=== PATIENT | male | born 1945 | race Caucasian/White ===

== ENCOUNTER 2020-01-13 11:18 | Inpatient (IN) | payer MEDICARE, BC ==
[2020-01-13] MEDS ORDERED: SODIUM CHLORIDE 0.9% 500 ML 500 ML IV STA (11:37)
[2020-01-13 11:56] LABS: Basophils # (A) 0.1 k/uL (0-0.2); Basophils % (A) 1 %; Eosinophils # (A) 0.2 k/uL (0-0.7); Eosinophils % (A) 3 %; HCT 42.1 % (39.0-53.0); HGB 13.9 gm/dL (13.0-17.5); Lymphocytes # (A) 1.5 k/uL (1.0-4.8); Lymphocytes % (A) 20 %; MCH 30.4 pg (25.0-35.0); MCHC 32.9 g/dL (31.0-37.0); MCV 92.4 fL (80.0-100.0); Mean Platelet Volume 8.1; Monocytes # (A) 0.4 k/uL (0-1.0); Monocytes % (A) 5 %; Neutrophils # (A) 5.2 k/uL (1.3-7.7); Neutrophils % (A) 69 %; Platelet Count 192 k/uL (150-450); RBC 4.56 m/uL (4.30-5.90); WBC 7.6 k/uL (3.8-10.6)
[2020-01-13 12:04] LABS: INR 0.9 (<1.2); Partial Thromboplastin Time 23.3 sec (22.0-30.0); Prothrombin Time 9.6 sec (9.0-12.0)
[2020-01-13 12:05] LABS: ALT 38 U/L (4-49); AST 30 U/L (17-59); African American GFR (CKD) >90 (>60 ml/min/1.73 sqM); Albumin 4.3 g/dL (3.5-5.0); Alkaline Phosphatase 75 U/L (38-126); Anion Gap 10 mmol/L; Blood Urea Nitrogen 19 mg/dL (9-20); Calcium 9.5 mg/dL (8.4-10.2); Carbon Dioxide 24 mmol/L (22-30); Chloride 101 mmol/L (98-107); Glucose 137 mg/dL (74-99); Non-African American GFR(CKD) 90 (>60 ml/min/1.73 sqM); Potassium 3.8 mmol/L (3.5-5.1); Sodium 135 mmol/L (137-145); Total Bilirubin 0.4 mg/dL (0.2-1.3); Total Protein 6.6 g/dL (6.3-8.2)
--- NOTE | 2020-01-13 12:06 | CT ---
EXAMINATION TYPE: CT brain wo con for TPA DATE OF EXAM: 01/13/2020 COMPARISON: None HISTORY: Right sided numbness, Left sided facial droop CT DLP: 1132.8 mGycm Automated exposure control for dose reduction was used. Head CT performed using departmental protocol . FINDINGS: There is no hemorrhage or hydrocephalus. Calvarium is intact. Paranasal sinuses and mastoid air cells as visualized are normal. Density is normal. Cerebral vascular calcifications are present. IMPRESSION: NO ACUTE BRAIN ABNORMALITY.
[2020-01-13 12:17] LABS: Creatine Kinase 121 U/L (55-170)
--- NOTE | 2020-01-13 12:21 | ED ---
General Adult HPI - General Chief complaint: Neuro Symptoms/Deficit Stated complaint: POSS stroke Time Seen by Provider: 01/13/20 11:20 Source: patient, RN notes reviewed, old records reviewed Mode of arrival: wheelchair - History of Present Illness Initial comments: This is a 74-year-old male presents emergency department stating that over the last week he's had blurred vision out of both eyes but when he shuts one eye his vision is normal he states his been intermittent throughout the week. Patient states today while he was driving his vision became very bad today pulled his car over and he began having a severe headache. Patient states the vision eventually came back to normal he had something to eat and then when you back into his car his vision started becoming blurred again. Patient states he also had numbness in his right arm which occurred twice during this timeframe. Patient states all symptoms have resolved except for the headache at this time. Patient appears to have some facial droop that the patient is unaware but the states the left side of his face is drooping. He did not notice his prior to coming to the emergency department. - Related Data Home Medications Medication Instructions Recorded Confirmed Calcium Carbonate [Calcium] 1,200 mg PO DAILY 01/13/20 01/13/20 Glucosam/Jimy-Msm1/C/Ezequiel/Bosw 2 tab PO DAILY 01/13/20 01/13/20 [Glucosamine-Chondroitin Tablet] Hydrochlorothiazide 12.5 mg PO HS 01/13/20 01/13/20 Levothyroxine Sodium [Synthroid] 50 mcg PO DAILY 01/13/20 01/13/20 Losartan Potassium 50 mg PO HS 01/13/20 01/13/20 Multivitamins, Thera [Multivitamin 1 tab PO DAILY 01/13/20 01/13/20 (formulary)] [place]-3 Fatty Acids [[place]-3] 1,000 mg PO DAILY 01/13/20 01/13/20 Allergies Allergy/AdvReac Type Severity Reaction Status Date / Time No Known Allergies Allergy Verified 01/13/20 12:39 Review of Systems ROS Statement: Those systems with pertinent positive or pertinent negative responses have been documented in the HPI. ROS Other: All systems not noted in ROS Statement are negative. Past Medical History Past Medical History: Hypertension, Thyroid Disorder Additional Past Medical History / Comment(s): hard of hearing Past Surgical History: Back Surgery Additional Past Surgical History / Comment(s): thyroid Past Psychological History: No Psychological Hx Reported Smoking Status: Never smoker Past Alcohol Use History: Occasional Past Drug Use History: None Reported General Exam - General Exam Comments Initial Comments: GENERAL: Patient is well-developed and well-nourished. Patient is nontoxic and well- hydrated and is in mild distress. ENT: Neck is soft and supple. No significant lymphadenopathy is noted. Oropharynx is clear. Moist mucous membranes. Neck has full range of motion without eliciting any pain. EYES: The sclera were anicteric and conjunctiva were pink and moist. Extraocular movements were intact and pupils were equal round and reactive to light. Eyelids were unremarkable. PULMONARY: Unlabored respirations. Good breath sounds bilaterally. No audible rales rhonchi or wheezing was noted. CARDIOVASCULAR: There is a regular rate and rhythm without any murmurs gallops or rubs. ABDOMEN: Soft and nontender with normal bowel sounds. No palpable organomegaly was noted. There is no palpable pulsatile mass. SKIN: Skin is clear with no lesions or rashes and otherwise unremarkable. NEUROLOGIC: Patient is alert and oriented x3. Patient has left-sided facial droop. Patient is good strength of all 4 extremities. Patient has normal sensation of all 4 extremities. MUSCULOSKELETAL: Normal extremities with adequate strength and full range of motion. No lower extremity swelling or edema. No calf tenderness. LYMPHATICS: No significant lymphadenopathy is noted PSYCHIATRIC: Normal psychiatric evaluation. Course Vital Signs 01/13/20 01/13/20 01/13/20 11:21 11:31 11:45 Temperature 98.1 F Pulse Rate 56 L Respiratory 18 18 Rate Blood Pressure 159/83 179/85 O2 Sat by Pulse 100 99 99 Oximetry 01/13/20 01/13/20 01/13/20 12:00 12:15 12:18 Temperature Pulse Rate 57 L 58 L Respiratory 18 16 16 Rate Blood Pressure 159/69 148/67 127/63 O2 Sat by Pulse 99 98 98 Oximetry 01/13/20 12:30 Temperature Pulse Rate 55 L Respiratory 19 Rate Blood Pressure 127/63 O2 Sat by Pulse 100 Oximetry Medical Decision Making - Medical Decision Making CT of the brain shows no acute abnormality. CTA shows a 90% atherosclerotic stenosis in the left carotid artery. Patient is a 60% atherosclerotic stenosis of the right carotid artery. I spoke with Dr. Luna because this was called code stroke. He agreed that there was no intervention necessary at this time and he wanted the patient admitted with consult to neurology and vascular I spoke with Dr. Ferraro he agreed to admit the patient admitted the patient I wrote admitting orders I gave the patient aspirin in the ER and continued aspirin on the floor. - Lab Data Result diagrams: 01/13/20 11:40 01/13/20 11:40 Lab Results 01/13/20 01/13/20 01/13/20 Range/Units 11:40 11:40 11:40 WBC 7.6 (3.8-10.6) k/uL RBC 4.56 (4.30-5.90) m/uL Hgb 13.9 (13.0-17.5) gm/dL Hct 42.1 (39.0-53.0) % MCV 92.4 (80.0-100.0) fL MCH 30.4 (25.0-35.0) pg MCHC 32.9 (31.0-37.0) g/dL RDW 13.0 (11.5-15.5) % Plt Count 192 (150-450) k/uL Neutrophils % 69 % Lymphocytes % 20 % Monocytes % 5 % Eosinophils % 3 % Basophils % 1 % Neutrophils # 5.2 (1.3-7.7) k/uL Lymphocytes # 1.5 (1.0-4.8) k/uL Monocytes # 0.4 (0-1.0) k/uL Eosinophils # 0.2 (0-0.7) k/uL Basophils # 0.1 (0-0.2) k/uL PT 9.6 (9.0-12.0) sec INR 0.9 (<1.2) APTT 23.3 (22.0-30.0) sec Sodium 135 L (137-145) mmol/L Potassium 3.8 (3.5-5.1) mmol/L Chloride 101 (98-107) mmol/L Carbon Dioxide 24 (22-30) mmol/L Anion Gap 10 mmol/L BUN 19 (9-20) mg/dL Creatinine 0.80 (0.66-1.25) mg/dL Est GFR (CKD-EPI)AfAm >90 (>60 ml/min/1.73 sqM) Est GFR (CKD-EPI)NonAf 90 (>60 ml/min/1.73 sqM) Glucose 137 H (74-99) mg/dL Calcium 9.5 (8.4-10.2) mg/dL Total Bilirubin 0.4 (0.2-1.3) mg/dL AST 30 (17-59) U/L ALT 38 (4-49) U/L Alkaline Phosphatase 75 (38-126) U/L Total Creatine Kinase (55-170) U/L CK-MB (CK-2) (0.0-2.4) ng/mL CK-MB (CK-2) Rel Index Troponin I (0.000-0.034) ng/mL Total Protein 6.6 (6.3-8.2) g/dL Albumin 4.3 (3.5-5.0) g/dL 01/13/20 Range/Units 11:40 WBC (3.8-10.6) k/uL RBC (4.30-5.90) m/uL Hgb (13.0-17.5) gm/dL Hct (39.0-53.0) % MCV (80.0-100.0) fL MCH (25.0-35.0) pg MCHC (31.0-37.0) g/dL RDW (11.5-15.5) % Plt Count (150-450) k/uL Neutrophils % % Lymphocytes % % Monocytes % % Eosinophils % % Basophils % % Neutrophils # (1.3-7.7) k/uL Lymphocytes # (1.0-4.8) k/uL Monocytes # (0-1.0) k/uL Eosinophils # (0-0.7) k/uL Basophils # (0-0.2) k/uL PT (9.0-12.0) sec INR (<1.2) APTT (22.0-30.0) sec Sodium (137-145) mmol/L Potassium (3.5-5.1) mmol/L Chloride (98-107) mmol/L Carbon Dioxide (22-30) mmol/L Anion Gap mmol/L BUN (9-20) mg/dL Creatinine (0.66-1.25) mg/dL Est GFR (CKD-EPI)AfAm (>60 ml/min/1.73 sqM) Est GFR (CKD-EPI)NonAf (>60 ml/min/1.73 sqM) Glucose (74-99) mg/dL Calcium (8.4-10.2) mg/dL Total Bilirubin (0.2-1.3) mg/dL AST (17-59) U/L ALT (4-49) U/L Alkaline Phosphatase (38-126) U/L Total Creatine Kinase 121 (55-170) U/L CK-MB (CK-2) 2.1 (0.0-2.4) ng/mL CK-MB (CK-2) Rel Index 1.7 Troponin I <0.012 (0.000-0.034) ng/mL Total Protein (6.3-8.2) g/dL Albumin (3.5-5.0) g/dL Critical Care Time Critical Care Time: Yes Total Critical Care Time: 35 Disposition Clinical Impression: Cerebrovascular accident (CVA), Carotid artery stenosis Disposition: ADMITTED IP TO THIS [facility] Is patient prescribed a controlled substance at d/c from ED?: No Referrals: None,Stated [REFERRING] - 1-2 days Time of Disposition: 13:52
[2020-01-13 12:30] LABS: Creatine Kinase MB 2.1 ng/mL (0.0-2.4); Troponin I <0.012 ng/mL (0.000-0.034)
--- NOTE | 2020-01-13 12:47 | CT ---
EXAMINATION TYPE: CT angio head neck DATE OF EXAM: 01/13/2020 COMPARISON: Same day HISTORY: 74-year-old male with right side numbness, LT side facial droop stroke suspected TECHNIQUE: Contiguous axial scanning of the head and neck performed with IV Contrast, patient injecte d with 65 mL of Isovue 370. Coronal/sagittal MIP reconstructions performed. 3-D reconstructions gener ated on a dedicated independent workstation. CT DLP: 570.2 mGycm Automated exposure control for dose reduction was used. FINDINGS: NECK: Conventional arch vessel branching anatomy. Moderate atherosclerotic calcifications at the origin of the left vertebral artery. The vertebral art eries are otherwise codominant and patent throughout their course. Right common carotid artery is patent. Moderate to severe atherosclerotic change at the right carotid bifurcation with moderate, approximate ly 60% stenosis in the carotid bulb. Remainder of the right ICA appears patent. Left common carotid artery is patent. There is crescentic plaque within the mid common carotid artery causing mild, 25% narrowing. Atherosclerotic calcifications and severe plaque within the left carotid bulb causing a severe, 90% s tenosis. Minimal patent lumen measuring approximately 1.4 mm remains. The left carotid bifurcation is located approximately 1.7 cm below the angle of the mandible. Remainder of the left internal carotid arteries patent. Small right lobe of the thyroid gland. Possible underlying moderate spinal canal stenoses within the cervical spine. HEAD: Vertebral and basilar arteries are patent. Hypoplastic P1 segments with persistent origin of the bilateral posterior cerebral arteries. Moderate atherosclerotic calcifications throughout the carotid siphons with focal moderate, approxima tely 60% stenosis along the supraclinoid ICAs, right greater than left, refer to thin axial images 10 5 and 117. Additional moderate focal atherosclerotic narrowing distal left ICA prior to the carotid terminus, ax ial image 118. Hypoplastic A1 segment left FER. Remainder of the anterior circulation is patent. No aneurysmal change is identified. IMPRESSION: NECK: 1. SEVERE, 90% ATHEROSCLEROTIC STENOSIS LEFT CAROTID BULB. 2. Moderate, approximately 60% atherosclerotic stenosis right carotid bulb. 3. Possible moderate atherosclerotic narrowing at the origin of the left vertebral artery. HEAD: 1. Mild to moderate atherosclerotic narrowing throughout the bilateral carotid siphons. 2. Additional focal moderate stenosis distal left ICA prior to the carotid terminus. 3. Hypoplastic A1 segment left FER. 4. Hypoplastic P1 segments with persistent origins of the bilateral asphalt blender. 5. No large vessel intracranial arterial occlusion or aneurysmal change is seen.
--- NOTE | 2020-01-13 13:36 | XR ---
EXAMINATION TYPE: XR chest 2V DATE OF EXAM: 01/13/2020 COMPARISON: NONE HISTORY: Altered mental status TECHNIQUE: Frontal and lateral views of the chest are obtained. FINDINGS: There is no focal air space opacity, pleural effusion, or pneumothorax seen. The cardiac silhouette size is within normal limits. The osseous structures are intact, compression deformities present at the lower thoracic spine, there is a sclerotic appearance. Biapical pleural thickening is noted. Aorta is dense. IMPRESSION: No acute cardiopulmonary process. Correlate for history of vertebroplasty at what may be T12, consider additional imaging as indicated
[2020-01-13] MEDS ORDERED: ASPIRIN 325 MG TAB PO STA (13:55)
[2020-01-13] MEDS ORDERED: ACETAMINOPHEN TAB 500 MG TAB PO STA (14:38)
--- NOTE | 2020-01-13 20:00 | P.CNNES ---
History of Present Illness Consult date: 01/13/20 Requesting physician: Dieudonne Hodgson Reason for Consult: CVA History of Present Illness: Patient is a 74-year-old male came to the hospital for possible recurrent TIAs. Patient states that he has bought a motor home and was planning to pick it up today from [place]. He was half a to [place], when he suddenly developed acute visual disturbance in which everything was scrambled up with both eyes. When he would close one eye, everything will go away and vice versa. He also noticed numbness of the right hand, with weakness and decreased dexterity. He pulled over and 8 a sandwich. However the symptoms came back in the right hand. He got concerned and came to the ER, and arrived at 11:18 AM. His blood pressure on arrival was 159/83, pulse rate 56, temperature 98.1. Patient underwent CT head showed no acute brain abnormality. CTA of the neck showed severe, 90% atherosclerotic stenosis left carotid bulb. Moderate approximately 60% atherosclerotic stenosis right carotid bulb. Possible moderate atherosclerotic narrowing at the origin of left vertebral artery. CTA of the head showed [id number] atherosclerotic narrowing throughout the bilateral carotid siphons. Additional focal moderate stenosis distal left ICA prior to carotid terminus. Hypoplastic A1 segment left FER. Hypoplastic P1 segment with persistent origins of the bilateral railway track worker. No large vessel intracranial arterial occlusion or aneurysmal changes is seen. Chest x-ray showed no acute cardiopulmonary process. Correlate for history of vertebroplasty at what maybe T12, consider additional imaging if indicated. Patient had normal CBC, PT/PTT, sodium 135 potassium 3.8, normal renal functions. Normal liver functions. Troponin negative. Patient also tells me that for past 12 weeks, he has been having dizzy spells, w hich he feels like disorientation, not vertigo. It would last for about 30 seconds. He spoke to his physician, who felt it was from side effect of medication. His dose of losartan was decreased from 100 down to 50 mg a week ago and his symptoms did improve. Patient in the last 1 week has been having this visual disturbance which would last only for a few seconds occurring from once to 2 or 3 times a day lasting for a few seconds. It feels like everything is scrambled up in his vision, goes away with closing one or the other eye. He states it could be double. The symptoms today was the most severe. Patient has history of hypertension for 10 years, which has got worse with time. Denies diabetes. He never used any tobacco. He states that he has been very athletic all his life. He does not take any antiplatelet medication, like aspirin for years. Patient also states that he had tripped on [employer] wire in September or October, while he was looking for wild mushrooms, and he fell on the right side. He blacked out for a short while. He melissa his head and neck. Patient also fell off a ladder 2 years ago, fracturing T11 vertebra. He also was diagnosed with prostate cancer, completed radiation and chemotherapy in March 2019. Review of Systems As mentioned above in detail. All other review of systems unremarkable. Patient denies any chest pain shortness of breath wheezing or cough. Denies abdominal pain nausea vomiting diarrhea. Complains of some back pain. Past Medical History Past Medical History: Cancer, Hypertension, Prostate Disorder, Thyroid Disorder Additional Past Medical History / Comment(s): hard of hearing, prostate cancer History of Any Multi-Drug Resistant Organisms: None Reported Past Surgical History: Back Surgery Additional Past Surgical History / Comment(s): thyroid Past Psychological History: No Psychological Hx Reported Smoking Status: Never smoker Past Alcohol Use History: Occasional Past Drug Use History: None Reported - Past Family History Father Family Medical History: Myocardial Infarction ([place]) Additional Family Medical History / Comment(s): of [place] Mother Family Medical History: CVA/TIA Additional Family Medical History / Comment(s): of stroke Sister(s) Family Medical History: Diabetes Mellitus Brother(s) Family Medical History: CVA/TIA Additional Family Medical History / Comment(s): of brain bleed stroke Medications and Allergies Home Medications Medication Instructions Recorded Confirmed Type Calcium Carbonate [Calcium] 1,200 mg PO DAILY 01/13/20 01/13/20 History Glucosam/Jimy-Msm1/C/Ezequiel/Bosw 2 tab PO DAILY 01/13/20 01/13/20 History [Glucosamine-Chondroitin Tablet] Hydrochlorothiazide 12.5 mg PO HS 01/13/20 01/13/20 History Levothyroxine Sodium [Synthroid] 50 mcg PO DAILY 01/13/20 01/13/20 History Losartan Potassium 50 mg PO HS 01/13/20 01/13/20 History Multivitamins, Thera [Multivitamin 1 tab PO DAILY 01/13/20 01/13/20 History (formulary)] [place]-3 Fatty Acids [[place]-3] 1,000 mg PO DAILY 01/13/20 01/13/20 History Allergies Allergy/AdvReac Type Severity Reaction Status Date / Time No Known Allergies Allergy Verified 01/13/20 12:39 Physical Examination - Vital Signs Vital Signs: Vital Signs Temp Pulse Pulse Resp BP BP Pulse Ox 01/13/20 14:22 98.5 F 54 L 19 144/70 98 01/13/20 14:00 53 L 20 153/71 98 01/13/20 13:45 56 L 19 143/66 99 01/13/20 13:15 137/67 01/13/20 13:00 55 L 20 136/65 97 01/13/20 12:45 55 L 16 131/66 01/13/20 12:30 55 L 19 127/63 100 01/13/20 12:18 58 L 16 127/63 98 01/13/20 12:15 57 L 16 148/67 98 01/13/20 12:00 18 159/69 99 01/13/20 11:45 18 179/85 99 01/13/20 11:31 99 01/13/20 11:21 98.1 F 56 L 18 159/83 100 Intake and Output 01/13/20 01/13/20 01/13/20 06:59 14:59 22:59 Intake Total 500 Balance 500 Intake: Intake, IV Titration 500 Amount Sodium Chloride 0.9% 500 500 ml 500 ml @ 999 mls/hr IV .Q31M STA Rx#:[id number] Other: Weight 95.708 kg On examination patient is an elderly male, in no acute distress. Patient is alert awake oriented to time place and person. Speech and language functions are normal. Attention, concentration and fund of knowledge is adequate. On cranial nerve examination pupils are round and reacting to light. Visual [place] are full on confrontation. Extraocular muscles are intact with no nystagmus. No Ching syndrome. Face is symmetric, tongue protrudes the midline. Palatal elevation and sensation normal. Hearing is slightly decreased, shoulder shrug normal. On muscle strength testing there is no pronator drift and the strength is normal in arms and legs distally and proximally. Reflexes are somewhat diminished and plantars are equivocal. Sensory to touch is equal with no neglect. No ataxia for [id number] testing. Tone and bulk of muscles normal. Gait deferred. Patient has bilateral carotid bruit. S1 and S2 audible. Peripheral pulses present. No peripheral edema. Chest is clear, abdomen soft nontender. Results - Laboratory Findings CBC and BMP: 01/13/20 11:40 01/13/20 11:40 Abnormal Lab Findings: Abnormal Labs 01/13/20 11:40 Sodium 135 L Glucose 137 H Assessment and Plan Assessment: * Recurrent TIA manifesting with intermittent dizziness, visual disturbance, and more recent onset of transient right arm weakness. Current INH stroke scale is 0. CTA of neck showed bilateral ICA stenosis, 90% on the left, 60% on the right, with possible some atherosclerotic narrowing at the origin of left vertebral artery. * Bilateral ICA stenosis, severe on the left. * Hypertension Plan: * Patient has been started on aspirin 325 mg daily, which will be continued. * Await MRI of the brain, 2-D echo to rule out any embolic source. * Agree with checking fasting lipid panel, hemoglobin A1c. * Await vascular surgical consultation. * Continue close neuro checks. * Neurology will follow.
[2020-01-13] MEDS: LOSARTAN 50 MG TAB PO SCH (20:17)
--- NOTE | 2020-01-14 00:39 | HP ---
HISTORY AND PHYSICAL A 74-year-old white male came to the hospital with visual changes 2 weeks ago and also today, unable to see because of blurred vision, unable to drive. He came here with right-sided weakness and numbness in his right hand along with the blurred vision, which has never happened to him before. His pulse rate is 59, blood pressure 159/83, temperature is afebrile. CT was negative. CT of the neck shows 90% blockage of the left carotid bulb and a 60% stenosis on the right side of the carotid artery bulb. He also has moderate stenosis of the distal left ICA. He has a vertebroplasty at T12. He states he has been having some dizziness also in the last 12 weeks, not vertigo. His losartan was cut down from 100 to 50, a week ago, did not improve his symptoms. The patient was admitted. MRI has been ordered. Neurology consult is pending. He was diagnosed with prostate cancer complete radiation and chemotherapy in 2019. REVIEW OF SYSTEMS: Fourteen-point review of systems otherwise negative. PAST MEDICAL HISTORY: Prostate cancer, hypertension, hypothyroidism, hard of hearing, back surgery. Never smoked. Occasional alcohol. No drugs. FAMILY HISTORY: Father myocardial infarction. Mother CVA, TIA. Sister diabetes mellitus. Brother of brain bleed and stroke. HOME MEDICINES: 1. Calcium 1200 mg daily. 2. Hydrochlorothiazide 12.5 mg one daily. 3. Synthroid 50 mcg one daily. 4. Losartan 50 mg daily. 5. Multivitamin daily. 6. [place]-3 fatty acids daily. ALLERGIES: No known drug allergies. PHYSICAL EXAMINATION: VITAL SIGNS: Temperature 98.5, pulse 50s to 60s, respiratory rate 18 to 20, blood pressure is 120s to 150s over 60s to 70s, O2 of 98% to 100%. Range of motion full x4. CARDIOVASCULAR: S1, S2. LUNGS: Clear. GI: Soft. HEMATOLOGY: Negative Homans. ASSESSMENT: 1. Recurrent transient ischemic attack. 2. Intermittent dizziness. 3. Right carotid stenosis. 4. Bilateral ICA stenosis, severe on the left. 5. Hypertension. Aspirin. MRI of the brain. 2D echo. Vascular surgical consultation. Please see further orders. MMODL / IJN: [id number] /
[2020-01-14 02:08] LABS: Cholesterol 183 mg/dL (<200); HDL Cholesterol 40 mg/dL (40-60); LDL Cholesterol,Calculated 93 mg/dL (0-99); Triglycerides 252 mg/dL (<150)
[2020-01-14 04:11] LABS: Hemoglobin A1C 6.2 % (4.0-6.0)
[2020-01-14] MEDS: LEVOTHYROXINE 50 MCG TAB PO SCH (06:20)
[2020-01-14 08:00] LABS: Glucose,Whole Blood 142 mg/dL (75-99)
[2020-01-14] MEDS: ASPIRIN 325 MG TAB PO SCH (08:15)
[2020-01-14] MEDS: CLOPIDOGREL 75 MG TAB PO SCH (09:27)
--- NOTE | 2020-01-14 10:00 | ECHOF ---
Referral Reason:embolic cva MEASUREMENTS -------- HEIGHT: 180.3 cm WEIGHT: 95.7 kg BP: 136/65 IVSd: 1.5 cm (0.6 - 1.1) LVIDd: 3.9 cm (3.9 - 5.3) LVPWd: 1.8 cm (0.6 - 1.1) IVSs: 2.0 cm LVIDs: 2.1 cm LVPWs: 1.8 cm LAESV Index (A-L): 13.55 ml/m Ao Diam: 2.9 cm (2.0 - 3.7) AV Cusp: 1.8 cm (1.5 - 2.6) LA Diam: 2.7 cm (2.7 - 3.8) MV EXCURSION: 16.659 mm (> 18.000) MV EF SLOPE: 93 mm/s (70 - 150) EPSS: 0.5 cm MV E Errol: 1.02 m/s MV DecT: 248 ms MV A Errol: 0.81 m/s MV E/A Ratio: 1.26 RAP: 5.00 mmHg RVSP: 21.24 mmHg FINDINGS -------- Sinus rhythm. This was a technically good study. The left ventricular size is normal. There is moderate concentric left ventricular hypertrophy. O verall left ventricular systolic function is normal with, an EF between 55 - 60 %. The right ventricle is normal in size. The left atrial size is normal. Normal LA size by volume 22+/-6 ml/m2. The right atrial size is normal. The aortic valve is trileaflet and appears structurally normal. The mitral valve leaflets are mildly thickened. There is trace mitral regurgitation. Trace tricuspid regurgitation present. Right ventricular systolic pressure is normal at < 35 mmHg. There is no pulmonic regurgitation present. The aortic root size is normal. IVC Not well visulized. There is no pericardial effusion. CONCLUSIONS -------- 1. There is moderate concentric left ventricular hypertrophy. 2. Overall left ventricular systolic function is normal with, an EF between 55 - 60 %. 3. The mitral valve leaflets are mildly thickened. 4. There is trace mitral regurgitation. 5. Trace tricuspid regurgitation present. TRAINMAN: Mitzi Daly RDCS
--- NOTE | 2020-01-14 12:33 | P.GSCN ---
History of Present Illness Consult date: 01/14/20 Reason for Consult: Severe left internal Carotid stenosis, TIA History of present illness: This is a 74-year-old male patient who came to the hospital yesterday with complaints of bilateral vision changes, followed by right upper extremity numbness and tingling in his hand as well as loss of dexterity. He states he had blurred vision which he described as draping was scrambled, many with close 1 eye everything would go away. He states that his visual changes started about a week ago and are intermittent. He was driving on his way to [place] when he knew onset of symptoms began, he was able to crop puller to the side of the road and have a sandwich Bonnie nagel to drive. Once his hand started becoming numb and tingling he decided to come to the emergency department. He was noted to have left facial drooping as well in the emergency department. His blood pressure on arrival was 159/83, heart rate 53, temperature 98.1. The patient is a lifetime nonsmoker, has a history of hypertension and a history of prostate cancer with radiation therapy in 2019. The patient states currently all symptoms have subsided. CT of the head showed no acute brain abnormality. CT angiogram of the neck shows 90% stenosis in the left carotid bulb, 60% stenosis in the right carotid bulb with possible moderate arthrosclerotic narrowing at the origin of left vertebral artery. ET angiogram of the head shows mild to moderate arthrosclerotic narrowing throughout the bilateral carotid siphons. Additional focal moderate stenosis distal left ICA pressure to the carotid terminus. 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 No large vessel intracranial arterial occlusive or aneurysmal changes seen. Echocardiogram shows there is moderate concentric left ventricular hypertrophy, overall ventricular systolic function is normal, an EF between 55-60%. The mitral valve leaflets are mildly thickened. There is a trace of mitral regurgitation. Trace tricuspid regurg itation present. Right ventricular systolic pressure is normal. There is no pulmonic regurgitation present. Lipid panel was obtained obtained, triglycerides 252, total cholesterol 183, LDL 93, HDL 40. The patient has no current focal deficits, he denies any shortness breath or chest pain. Denies any abdominal pain, nausea or vomiting. Review of Systems A 14 point review of systems was completed all pertinent positives and negatives as stated in the HPI. Past Medical History Past Medical History: Cancer, Hypertension, Prostate Disorder, Thyroid Disorder Additional Past Medical History / Comment(s): hard of hearing, prostate cancer History of Any Multi-Drug Resistant Organisms: None Reported Past Surgical History: Back Surgery Additional Past Surgical History / Comment(s): thyroid Past Psychological History: No Psychological Hx Reported Smoking Status: Never smoker Past Alcohol Use History: Occasional Past Drug Use History: None Reported - Past Family History Father Family Medical History: Myocardial Infarction (IA) Additional Family Medical History / Comment(s): of [place] Mother Family Medical History: CVA/TIA Additional Family Medical History / Comment(s): of stroke Sister(s) Family Medical History: Diabetes Mellitus Brother(s) Family Medical History: CVA/TIA Additional Family Medical History / Comment(s): of brain bleed stroke Medications and Allergies Home Medications Medication Instructions Recorded Confirmed Type Calcium Carbonate [Calcium] 1,200 mg PO DAILY 01/13/20 01/13/20 History Glucosam/Jimy-Msm1/C/Ezequiel/Bosw 2 tab PO DAILY 01/13/20 01/13/20 History [Glucosamine-Chondroitin Tablet] Hydrochlorothiazide 12.5 mg PO HS 01/13/20 01/13/20 History Levothyroxine Sodium [Synthroid] 50 mcg PO DAILY 01/13/20 01/13/20 History Losartan Potassium 50 mg PO HS 01/13/20 01/13/20 History Multivitamins, Thera [Multivitamin 1 tab PO DAILY 01/13/20 01/13/20 History (formulary)] [place]-3 Fatty Acids [[place]-3] 1,000 mg PO DAILY 01/13/20 01/13/20 History Allergies Allergy/AdvReac Type Severity Reaction Status Date / Time No Known Allergies Allergy Verified 01/13/20 12:39 Surgical - Exam Vital Signs Temp Pulse Resp BP Pulse Ox 98.1 F 56 L 18 159/83 100 01/13/20 11:21 01/13/20 11:21 01/13/20 11:21 01/13/20 11:21 01/13/20 11:21 General appearance: The patient is alert, oriented, in no acute distress. HET: Head is normocephalic and atraumatic. Pupils are equal and reactive. Oropharynx is clear without lesions. Neck: Supple without lymphadenopathy. Trachea midline. Right carotid with sli ght bruit, left carotid not audible. Heart: S1 S2. Regular rate and rhythm. Lungs: No crackles or wheezes are heard. Abdomen: Soft, nontender, nondistended with bowel sounds. Extremities: Normal skin color and turgor. No cyanosis, rash, ulceration, clubbing, or edema. Radial and pedal pulses are 2/4 bilaterally. Neurological: No focal deficits. Strength and sensation are grossly intact. Speech is fluent, patient is able to protrude tongue midline. No facial drooping noticed. Bilateral upper and lower strength normal. Results Echocardiogram reviewed and dictated in [facility] CT brain reviewed and dictated in the [facility] CT angiogram of head and neck reviewed and dictated in the HPI - Labs 01/13/20 11:40 01/13/20 11:40 Abnormal Lab Results - Last 24 Hours (Table) 01/13/20 01/13/20 01/13/20 Range/Units 11:40 11:40 11:40 Sodium 135 L (137-145) mmol/L Glucose 137 H (74-99) mg/dL POC Glucose (mg/dL) (75-99) mg/dL Hemoglobin A1c 6.2 H (4.0-6.0) % Triglycerides 252 H (<150) mg/dL 01/13/20 Range/Units 11:41 Sodium (137-145) mmol/L Glucose (74-99) mg/dL POC Glucose (mg/dL) 142 H (75-99) mg/dL Hemoglobin A1c (4.0-6.0) % Triglycerides (<150) mg/dL Diabetes panel 01/13/20 01/13/20 01/13/20 Range/Units 11:40 11:40 11:40 Sodium 135 L (137-145) mmol/L Potassium 3.8 (3.5-5.1) mmol/L Chloride 101 (98-107) mmol/L Carbon Dioxide 24 (22-30) mmol/L BUN 19 (9-20) mg/dL Creatinine 0.80 (0.66-1.25) mg/dL Glucose 137 H (74-99) mg/dL Hemoglobin A1c 6.2 H (4.0-6.0) % Calcium 9.5 (8.4-10.2) mg/dL AST 30 (17-59) U/L ALT 38 (4-49) U/L Alkaline Phosphatase 75 (38-126) U/L Total Protein 6.6 (6.3-8.2) g/dL Albumin 4.3 (3.5-5.0) g/dL Triglycerides 252 H (<150) mg/dL HDL Cholesterol 40 (40-60) mg/dL Thyroid panel 01/13/20 Range/Units 11:40 TSH 2.340 (0.465-4.680) mIU/L Calcium panel 01/13/20 Range/Units 11:40 Calcium 9.5 (8.4-10.2) mg/dL Albumin 4.3 (3.5-5.0) g/dL Pituitary panel 01/13/20 01/13/20 Range/Units 11:40 11:40 Sodium 135 L (137-145) mmol/L Potassium 3.8 (3.5-5.1) mmol/L Chloride 101 (98-107) mmol/L Carbon Dioxide 24 (22-30) mmol/L BUN 19 (9-20) mg/dL Creatinine 0.80 (0.66-1.25) mg/dL Glucose 137 H (74-99) mg/dL Calcium 9.5 (8.4-10.2) mg/dL TSH 2.340 (0.465-4.680) mIU/L Adrenal panel 01/13/20 Range/Units 11:40 Sodium 135 L (137-145) mmol/L Potassium 3.8 (3.5-5.1) mmol/L Chloride 101 (98-107) mmol/L Carbon Dioxide 24 (22-30) mmol/L BUN 19 (9-20) mg/dL Creatinine 0.80 (0.66-1.25) mg/dL Glucose 137 H (74-99) mg/dL Calcium 9.5 (8.4-10.2) mg/dL Total Bilirubin 0.4 (0.2-1.3) mg/dL AST 30 (17-59) U/L ALT 38 (4-49) U/L Alkaline Phosphatase 75 (38-126) U/L Total Protein 6.6 (6.3-8.2) g/dL Albumin 4.3 (3.5-5.0) g/dL Assessment and Plan Assessment: 1. Severe left ICA stenosis, approximately 90%. Right ICA stenosis approximately 60% 2. TIA 3. Visual disturbance 4. Right upper extremity numbness and weakness 5. Hypertension 6. History of prostate cancer, status post radiation therapy Plan: We'll start patient on low-dose aspirin, Plavix 75 mg daily, and atorvastatin 40 mg at at bedtime. Dr. Oconnor discussed with patient that he recommends vascular surgical intervention for his severe left carotid stenosis within the next 2 weeks to stabilize symptoms. Further vascular surgical recommendations to follow based on MRI of brain and recommendations per neurology. This consultation allowing us to take part in the plan of care your patient during his hospital stay. The above dictated assessment and findings were discussed with Dr. Oconnor. The impression and plan of care have been directed as dictated.
--- NOTE | 2020-01-14 13:28 | PN ---
PROGRESS NOTE 74-year-old white male who is symptomatology of a stroke with his blurry vision, right hand numbness all improved. He had an echo shows heart is pumping 55-60 percent, LVH, but no significant embolic causing a stroke. He has been weaned to be seen by vascular surgeon for left carotid stenosis 90%. If neurology and vascular surgeon clear him for discharge, he may be able to go home. Wait for the recommendations. Await for an MRI of the brain. Glucose level is 137. Hemoglobin A1c is 6.2, so he is prediabetic, which will be discussed with him as mentioned. Cardiac S1, S2. Lungs clear. GI soft. Await for recommendations from vascular surgeon for severe carotid stenosis on the left. IMPRESSION: 1. Transient ischemic attack. 2. Hypothyroidism. 3. Prediabetes. 4. Dyslipidemia. PROGNOSIS: Guarded. Please see further orders. MMODL / IJN: [id number] /
--- NOTE | 2020-01-14 14:27 | MR ---
EXAMINATION TYPE: MR brain wo/w con DATE OF EXAM: 01/14/2020 COMPARISON: CT 01/13/2020 HISTORY: 74-year-old male with right arm numbness, Lt side facial droop. Neuro deficits, stroke suspe cted TECHNIQUE: Multiplanar, multisequence images of the brain and brainstem were acquired before and aft er administration of 9.5 mL IV Gadavist. Diffusion weighted imaging is performed. FINDINGS: Images show no foci of restricted diffusion at the left parieto-occipital junction ranging in size fr om 3 mm to 1.3 cm. There is corresponding bright T2/FLAIR signal. No additional abnormal restricted diffusion is seen. Mild age-related cerebral cortical volume loss. Background of trace scattered T2 bright white matter change. Bilateral persistent origin of the posterior cerebral arteries better seen on prior CT angiogra phy. No enhancing intracranial lesions. Dural venous sinuses are patent. No midline shift, herniation, hydrocephalus, or extra-axial fluid collection. Midline structures demonstrate normal morphology. The craniocervical junction is normal. Leftward nasal septal deviation. Moderate mucosal thickening right maxillary sinus and mild within th e air cells and left maxillary sinus. Globes are intact. IMPRESSION: 1. Approximately 4 cortical and subcortical foci of acute infarct (greater than 6 hours in duration) ranging in size from 3 mm up to 1.3 cm involving the left parieto-occipital junction. No mass effect or midline shift. 2. Note that the patient's CT angiography of the head on 01/13/2020 demonstrated persistent orig in to the bilateral posterior cerebral arteries.. 3. Mild chronic paranasal sinus disease.
--- NOTE | 2020-01-14 16:04 | P.PN ---
Subjective Progress Note Date: 01/14/20 No further strokes or TIA. Telemetry monitoring showing sinus rhythm with sinus bradycardia. Objective - Vital Signs Vital signs: Vital Signs Temp 97.8 F 01/14/20 08:00 Pulse 53 L 01/14/20 12:00 Resp 19 01/14/20 12:00 BP 147/76 01/14/20 12:00 Pulse Ox 97 01/14/20 12:00 Intake & Output 01/13/20 01/14/20 01/14/20 18:59 06:59 18:59 Intake Total 736 660 240 Output Total 200 Balance 736 460 240 Weight 95.708 kg Intake: Intake, IV Titration 500 Amount Sodium Chloride 0.9% 500 500 ml 500 ml @ 999 mls/hr IV .Q31M STA Rx#:[id number] Oral 236 660 240 Output: Urine 200 Other: Voiding Method Toilet Toilet # Voids 3 - Exam Nonfocal. - Labs CBC & Chem 7: 01/13/20 11:40 01/13/20 11:40 Labs: Abnormal Lab Results - Last 24 Hours (Table) 01/13/20 01/13/20 01/13/20 Range/Units 11:40 11:40 11:41 POC Glucose (mg/dL) 142 H (75-99) mg/dL Hemoglobin A1c 6.2 H (4.0-6.0) % Triglycerides 252 H (<150) mg/dL Assessment and Plan Assessment: * Recurrent TIA manifesting with intermittent dizziness, visual disturbance, and more recent onset of transient right arm weakness. Current INH stroke scale is 0. CTA of neck showed bilateral ICA stenosis, 90% on the left, 60% on the right, with possible some atherosclerotic narrowing at the origin of left vertebral artery. MRI of the brain confirmed approximately 4 cortical and subcortical foci of acute infarct ranging in size from 3 mm to 1.3 cm involving the left parieto-occipital junction. No mass effect. * Bilateral ICA stenosis, severe on the left. * Hypertension Plan: * Patient now on dual antiplatelet medications with aspirin 325 mg and Plavix 75 mg. * MRI of the brain confirmed approximately 4 cortical and subcortical foci of acute infarct ranging in size from 3 mm to 1.3 cm involving the left parieto- occipital junction. No mass effect or midline shift. * 2-D echo showed moderate concentric LVH, EF is 55-60%. Mitral valve leaflet is mildly thickened. Trace MR. No obvious embolic source identified. * Fasting lipid panel showed cholesterol 183, LDL 93, HDL 40 and triglycerides 252. Continue Lipitor 40 mg. * Hemoglobin A1c 6.2. Patient states that he does have history of prediabetes for some time. * Vascular surgical input appreciated. Possible left CEA within 1-2 weeks * Continue close neuro checks.
[2020-01-14] MEDS ORDERED: ATORVASTATIN 40 MG TAB PO SCH (21:00)
[2020-01-14] MEDS: LOSARTAN 50 MG TAB PO SCH (21:02)
[2020-01-15] MEDS: LEVOTHYROXINE 50 MCG TAB PO SCH (06:13)
[2020-01-15] MEDS: ASPIRIN 325 MG TAB PO SCH (08:36)
[2020-01-15] MEDS: CLOPIDOGREL 75 MG TAB PO SCH (08:36)
[2020-01-15 09:45] VITALS: RESP 16
[2020-01-15 11:33] VITALS: BP 128/70; PULSE 57; TEMP 98.6
--- NOTE | 2020-01-15 12:36 | P.PN ---
Subjective Progress Note Date: 01/15/20 Patient seen and examined. No complaints. No issues with weakness or changes in vision overnight. No chest pains, shortness of breath nausea or vomiting. MRI is reviewed. Multiple foci of infarct measuring 3 mm to 1.3 cm in size Objective - Vital Signs Vital signs: Vital Signs Temp 98.6 F 01/15/20 11:31 Pulse 57 L 01/15/20 11:31 Resp 16 01/15/20 11:31 BP 128/70 01/15/20 11:31 Pulse Ox 99 01/15/20 11:31 Intake & Output 01/14/20 01/15/20 01/15/20 18:59 06:59 18:59 Intake Total 1240 236 Output Total 620 Balance 1240 -620 236 Intake: Oral 1240 236 Output: Urine 620 Other: Voiding Method Toilet # Voids 1 2 1 - Exam Gen. is a pleasant cooperative male in no acute distress. HEENT is normocephalic, atraumatic, extraocular motion intact. Heart is regular rate and rhythm at this time. Lungs are clear bilaterally. Abdomen soft, nontender and nondistended. No clubbing, cyanosis or edema of the extremities. Cranial ne rves II through XII grossly intact. Normal mood and affect. No neuro motor defects or deficits at this time - Labs CBC & Chem 7: 01/13/20 11:40 01/13/20 11:40 Assessment and Plan Assessment: #1 symptomatically high-grade left ICA stenosis #2 asymptomatic right ICA stenosis about 60% #3 CVA secondary to #1 #4 right arm weakness/numbness, resolved Plan: Attending recommendations continue to be repair within 2 weeks. Currently the patient has been started on aspirin and Plavix as well as statin medication to continuing. We will plan on performing his procedure sometime in the next 2 weeks, this point he can be discharged with surgical planning as an outpatient. All questions were answered. He is seemingly understanding and willing to proceed as such
--- NOTE | 2020-01-15 14:23 | P.PN ---
Subjective Progress Note Date: 01/15/20 No further strokes or TIA. Patient states he is able to walk without any issues. No focal symptoms. Objective - Vital Signs Vital signs: Vital Signs Temp 98.6 F 01/15/20 11:31 Pulse 57 L 01/15/20 11:31 Resp 16 01/15/20 11:31 BP 128/70 01/15/20 11:31 Pulse Ox 99 01/15/20 11:31 Intake & Output 01/14/20 01/15/20 01/15/20 18:59 06:59 18:59 Intake Total 1240 236 Output Total 620 Balance 1240 -620 236 Intake: Oral 1240 236 Output: Urine 620 Other: Voiding Method Toilet # Voids 1 2 1 - Exam Patient's mental status, speech and language functions are normal. No aphasia or dysarthria. Fully oriented. Cranial nerves pupils are round and reactive to light, visual [place] are full. Extraocular muscles are intact. Face has no d efinite asymmetry. Appears slightly asymmetric on the left, but patient's reviewed his face and states is at baseline. Tongue protrudes the midline. On muscle strength testing there is no pronator drift and the strength is normal in arms and legs. No ataxia for [id number] testing. Sensations are equal with no neglect. Gait is normal. Romberg negative. - Labs CBC & Chem 7: 01/13/20 11:40 01/13/20 11:40 Assessment and Plan Assessment: * Recurrent TIA manifesting with intermittent dizziness, visual disturbance, and more recent onset of transient right arm weakness. Current INH stroke scale is 0. CTA of neck showed bilateral ICA stenosis, 90% on the left, 60% on the right, with possible some atherosclerotic narrowing at the origin of left vertebral artery. MRI of the brain confirmed embolic infarction (approximately 4 cortical and subcortical foci of acute infarct ranging in size from 3 mm to 1.3 cm) involving the left parieto-occipital junction. No mass effect. * Bilateral ICA stenosis, severe on the left. * Hypertension Plan: * Patient now on dual antiplatelet medications with aspirin 325 mg and Plavix 75 mg. * MRI of the brain confirmed approximately 4 cortical and subcortical foci of acute infarct ranging in size from 3 mm to 1.3 cm involving the left parieto- occipital junction. No mass effect or midline shift. * 2-D echo showed moderate concentric LVH, EF is 55-60%. Mitral valve leaflet is mildly thickened. Trace MR. No obvious embolic source identified. * Fasting lipid panel showed cholesterol 183, LDL 93, HDL 40 and triglycerides 252. Continue Lipitor 40 mg. * Hemoglobin A1c 6.2. Patient states that he does have history of prediabetes for some time. * Vascular surgical input appreciated. Possible left CEA within 1-2 weeks * Patient being discharged, and will follow up with vascular surgery to schedule outpatient left CEA within 1-2 weeks.
--- NOTE | 2020-01-16 15:04 | P.DS ---
Providers Date of admission: 01/13/20 13:55 Expected date of discharge: 01/15/20 Attending physician: Girish Ferraro Consults: 01/13/20 13:57 Consult Physician Routine Consulting Provider: Paula Manzanares Consult Reason/Comments: CVa Do you want consulting provider notified?: Yes 01/13/20 13:58 Consult Physician Routine Consulting Provider: Jalil Oconnor Consult Reason/Comments: Left carotid artery stenosis Do you want consulting provider notified?: Yes Primary care physician: Physician Nonstaff Hospital Course: Final Diagnoses: Possible recurrent TIAs. Acute CVA.MRI of the brain confirmed embolic infarction (approximately 4 cortical and subcortical foci of acute infarct ranging in size from 3 mm to 1.3 cm) involving the left parieto-occipital junction. No mass effect. Bilateral ICA stenosis, severe on the left. Hypertension right arm weakness/numbness, resolved Hypothyroidism Dyslipidemia Hemoglobin A1c 6.2, prediabetes History of prostate cancer, status post radiation therapy Hospital course is a 74-year-old gentleman admitted with possible recurrent TIAs, intermittent dizziness, focal deficits, transient right arm weakness. Evaluated by neurology with neuro work completed. CTA of neck showed bilateral ICA stenosis, 90% on the left, 60% on the right, with possible some atherosclerotic narrowing at the origin of left vertebral artery. Bilateral ICA stenosis, severe on the left. Echo reported normal LV function, EF 55-60%, with no embolic source identified. Evaluated by vascular surgery. Maintained on aspirin ,Plavix, statin. Significant clinical improvement. Possible left CEA within 2 weeks. Cleared by both vascular surgery and neurology for discharge. Patient is being discharged home in a stable condition with guarded prognosis. The impression and plan of care has been dictated as directed. : I performed a history and examination of this patient, discussed the same with the dictator. I agree with the dictator's note ,documented as a scribe. Any additional findings or plans will be noted. Patient Condition at Discharge: Stable Plan - Discharge Summary Discharge Rx Participant: Yes New Discharge Prescriptions: New Aspirin EC [Ecotrin Low Dose] 81 mg PO DAILY #30 tablet. Atorvastatin [Lipitor] 40 mg PO HS #30 tab Clopidogrel [Plavix] 75 mg PO DAILY #30 tab Continue Multivitamins, Thera [Multivitamin (formulary)] 1 tab PO DAILY Glucosam/Jimy-Msm1/C/Ezequiel/Bosw [Glucosamine-Chondroitin Tablet] 2 tab PO DAILY [place]-3 Fatty Acids [[place]-3] 1,000 mg PO DAILY Losartan Potassium 50 mg PO HS Levothyroxine Sodium [Synthroid] 50 mcg PO DAILY Hydrochlorothiazide [hydroCHLOROthiazide] 12.5 mg PO HS Calcium Carbonate [Calcium] 1,200 mg PO DAILY Discharge Medication List Calcium Carbonate [Calcium] 1,200 mg PO DAILY 01/13/20 [History] Glucosam/Jimy-Msm1/C/Ezequiel/Bosw [Glucosamine-Chondroitin Tablet] 2 tab PO DAILY 01/13/20 [History] Hydrochlorothiazide [hydroCHLOROthiazide] 12.5 mg PO HS 01/13/20 [History] Levothyroxine Sodium [Synthroid] 50 mcg PO DAILY 01/13/20 [History] Losartan Potassium 50 mg PO HS 01/13/20 [History] Multivitamins, Thera [Multivitamin (formulary)] 1 tab PO DAILY 01/13/20 [History] [place]-3 Fatty Acids [[place]-3] 1,000 mg PO DAILY 01/13/20 [History] Aspirin EC [Ecotrin Low Dose] 81 mg PO DAILY #30 tablet.dr 01/15/20 [Rx] Atorvastatin [Lipitor] 40 mg PO HS #30 tab 01/15/20 [Rx] Clopidogrel [Plavix] 75 mg PO DAILY #30 tab 01/15/20 [Rx] Follow up Appointment(s)/Referral(s): Lily May MD [REFERRING] - 2 Weeks (Office will call with appt date and time.) Girish Ferraro MD [STAFF PHYSICIAN] - 3 Days (please call [phone] to make follow up appt. within 3 days.) Martha Park DO [STAFF PHYSICIAN] - 01/29/20 10:45 am (Appointment is at [address] [id number]) Discharge Disposition: HOME SELF-CARE
== END 2020-01-15 14:42 | disposition home or self-care (01) | DRG 65 ==
LOC: EDSEX → EC 11:18 → 3SCARD 13:55
PROVIDERS: ADMIT Family Medicine; ATTEND Family Medicine
DX: I63.232 Cerebral infarction due to unspecified occlusion or stenosis of left carotid arteries (principal); G81.91 Hemiplegia, unspecified affecting right dominant side; R29.810 Facial weakness; H53.8 Other visual disturbances; R29.701 NIHSS score 1; E03.9 Hypothyroidism, unspecified; E78.5 Hyperlipidemia, unspecified; H91.90 Unspecified hearing loss, unspecified ear; I10 Essential (primary) hypertension; I65.23 Occlusion and stenosis of bilateral carotid arteries; R73.03 Prediabetes; N42.9 Disorder of prostate, unspecified; Z11.59 Encounter for screening for other viral diseases; Z79.890 Hormone replacement therapy; Z79.899 Other long term (current) drug therapy; Z92.3 Personal history of irradiation; Z92.21 Personal history of antineoplastic chemotherapy; Z85.46 Personal history of malignant neoplasm of prostate; Z82.3 Family history of stroke; Z82.49 Family history of ischemic heart disease and other diseases of the circulatory system; Z83.3 Family history of diabetes mellitus; Z80.42 Family history of malignant neoplasm of prostate; Z83.52 Family history of ear disorders; Z83.49 Family history of other endocrine, nutritional and metabolic diseases
CPT/HCPCS: 36415; 70450; 70496; 70498; 70553; 71046; 80053; 80061; 82550; 82553; 83036; 84443; 84484; 85025; 85610; 85730; 93306; 99291

== ENCOUNTER 2020-01-28 07:28 | Inpatient (IN) | payer MEDICARE, BC ==
[2020-01-22 15:56] VITALS: BMI 26.0
[~2020-01-28 07:28] MED LIST: DEXAMETHASONE SOD PHOSPHATE 10 MG/ML 1 ML VIAL IV ONE; HYDROmorphone 0.5 MG/0.5 ML SYRINGE IVP PRN; LACTATED RINGERS 1,000 ML IV SCH; MIDAZOLAM 2 MG/2 ML VIAL IV PRN; ONDANSETRON 4 MG/2 ML VIAL IVP ONE
[2020-01-28] MEDS ORDERED: ONDANSETRON 4 MG/2 ML VIAL ONE (07:59)
[2020-01-28] MEDS ORDERED: MIDAZOLAM 2 MG/2 ML VIAL IVP ONE (08:25)
[2020-01-28] MEDS ORDERED: fentaNYL (PF) 50 MCG/ML 2 ML AMP IVP ONE (08:25)
--- NOTE | 2020-01-28 08:58 | P.GSHP ---
History of Present Illness H&P Date: 01/28/20 Chief Complaint: TIA, Carotid stenosis 74 year old male with recent hospitalization for right sided weakness, TIA and was found to have >90% stenosis of the left ICA. He was worked up for TCAR but disease was too calcified and therefore presents today for CEA. - Review of Systems All systems: negative (what is mentioned in the HPI or PMH) Past Medical History Past Medical History: Cancer, CVA/TIA, Hypertension, Prostate Disorder, Thyroid Disorder Additional Past Medical History / Comment(s): hard of hearing, prostate cancer, chemo and radiation last 2017. no residual effects from CVA History of Any Multi-Drug Resistant Organisms: None Reported Past Surgical History: Back Surgery Additional Past Surgical History / Comment(s): partial thyroidectomy r/t growth, 3 or 4 back surgeries, Past Anesthesia/Blood Transfusion Reactions: Postoperative Nausea & Vomiting ( PONV) Additional Past Anesthesia/Blood Transfusion Reaction / Comment(s): states "takes a long time waking up" Smoking Status: Never smoker - Past Family History Father Family Medical History: Myocardial Infarction ([place]) Additional Family Medical History / Comment(s): of [place] Mother Family Medical History: CVA/TIA Additional Family Medical History / Comment(s): of stroke Sister(s) Family Medical History: Diabetes Mellitus Brother(s) Family Medical History: CVA/TIA Additional Family Medical History / Comment(s): of brain bleed stroke Medications and Allergies Home Medications Medication Instructions Recorded Confirmed Type Calcium Carbonate [Calcium] 1,200 mg PO DAILY 01/13/20 01/22/20 History Glucosam/Jimy-Msm1/C/Ezequiel/Bosw 2 tab PO DAILY 01/13/20 01/22/20 History [Glucosamine-Chondroitin Tablet] Levothyroxine Sodium [Synthroid] 50 mcg PO DAILY 01/13/20 01/28/20 History Multivitamins, Thera [Multivitamin 1 tab PO DAILY 01/13/20 01/22/20 History (formulary)] [place]-3 Fatty Acids [[place]-3] 1,000 mg PO DAILY 01/13/20 01/22/20 History Aspirin EC [Ecotrin Low Dose] 81 mg PO DAILY #30 tablet. 01/15/20 01/28/20 Rx Atorvastatin [Lipitor] 40 mg PO HS #30 tab 01/15/20 01/22/20 Rx Clopidogrel [Plavix] 75 mg PO DAILY #30 tab 01/15/20 01/28/20 Rx Losartan Potassium [Cozaar] 25 mg PO HS 01/22/20 01/22/20 History Allergies Allergy/AdvReac Type Severity Reaction Status Date / Time No Known Allergies Allergy Verified 01/22/20 15:50 Surgical - Exam Vital Signs Temp Pulse Resp BP Pulse Ox 97.0 F L 63 17 131/66 98 01/28/20 08:35 01/28/20 08:35 01/28/20 08:35 01/28/20 08:35 01/28/20 08:35 - General well developed, well nourished, no distress - Eyes PERRL - ENT normal pinna - Neck no masses - Respiratory normal expansion - Cardiovascular Rhythm: regular - Abdomen Abdomen: soft, non tender - Integumentary no rash, no growths - Neurologic normal coordination - Musculoskeletal normal gait - Psychiatric oriented to time, oriented to person, oriented to place, speech is normal Assessment and Plan Assessment: LICA stenosis >90% Recent TIA with right sided weakness Plan: To OR for Left CEA with patch angioplasty.
[2020-01-28] MEDS ORDERED: LABETALOL 5 MG/ML VIAL MDV ONE (09:27)
[2020-01-28] MEDS ORDERED: GLYCOPYRROLATE 0.2 MG/ML 2 ML VIAL ONE (09:27)
[2020-01-28] MEDS ORDERED: PROPOFOL 10 MG/ML 20 ML VIAL IV ONE (09:27)
[2020-01-28] MEDS ORDERED: NEOSTIGMINE 1 MG/ML 10 ML VIAL ONE (09:27)
[2020-01-28] MEDS ORDERED: LIDOCAINE 1% INJ 10MG/ML (20 ML MDV) ONE (09:27)
[2020-01-28] MEDS ORDERED: ROCURONIUM BROMIDE 10 MG/ML 5 ML VIAL IV ONE (09:27)
[2020-01-28] MEDS ORDERED: HEPARIN SODIUM,PORCINE 10,000 UNIT/ML 1 ML VIAL ONE (09:27)
[2020-01-28] MEDS ORDERED: ePHEDrine SULFATE/0.9% NACL/PF 50 MG/5 ML SYRINGE IV ONE (09:27)
[2020-01-28] MEDS ORDERED: SUCCINYLCHOLINE CHLORIDE 100 MG/5 ML SYR IV ONE (09:27)
[2020-01-28] MEDS ORDERED: MIDAZOLAM 2 MG/2 ML VIAL ONE (09:27)
[2020-01-28] MEDS ORDERED: PHENYLEPHRINE-0.9% NACL SYG 1 MG/10 ML SYRINGE ONE (09:27)
[2020-01-28] MEDS ORDERED: fentaNYL (PF) 50 MCG/ML 2 ML AMP ONE (09:27)
[2020-01-28] MEDS ORDERED: LIDOCAINE 1% INJ 10MG/ML (20 ML MDV) SQ ONE (10:07)
[2020-01-28] MEDS ORDERED: ceFAZolin 2 GM in SODIUM CHLORIDE 0.9% 500 ML 500 ML IRRIGATION ONE (10:56)
[2020-01-28] MEDS ORDERED: HEPARIN SODIUM (1,000 UNIT/ML) 2,000 UNIT in SODIUM CHLORIDE 0.9% 1,000 ML IRRIGATION ONE (10:57)
[2020-01-28] MEDS ORDERED: LACTATED RINGERS 1,000 ML IV ONE (11:00)
[2020-01-28] MEDS ORDERED: MORPHINE SULFATE 2 MG/ML SYRINGE IVP PRN (11:40)
[2020-01-28] MEDS ORDERED: HYDROcodone/APAP 5-325MG 1 EACH TAB PO PRN (11:40)
[2020-01-28] MEDS ORDERED: BENZOCAINE/MENTHOL LOZENG 1 EACH LOZENGE MUCOUS MEM PRN (11:40)
[2020-01-28] MEDS ORDERED: TRIMETHOBENZAMIDE 100 MG/ML 2 ML VIAL IM PRN (11:40)
[2020-01-28] MEDS ORDERED: MAG HYDROX/AL HYDROX/SIMETH 30 ML CUP PO PRN (11:40)
[2020-01-28] MEDS ORDERED: ACETAMINOPHEN TAB 325 MG TAB PO PRN (11:40)
--- NOTE | 2020-01-28 11:54 | P.OP ---
Description of Procedure: Date of Procedure: 01/28/2020 Preoperative Diagnosis: Left Internal carotid artery stenosis Postoperative Diagnosis: Same Procedure(s) Performed: Left carotid endarterectomy with patch angioplasty Anesthesia: YOBANIA Surgeon: Jalil Oconnor Estimated Blood Loss (ml): 100 IV Fluids: See anesthesia record Pathology: Left carotid plaque Condition: stable Disposition: PACU Indications for Procedure: 74-year-old gentleman who was previously admitted to the hospital secondary to TIA with right-sided weakness. He underwent thorough workup and on CT angiogram was demonstrated greater than 90% stenosis of the left ICA. He presents today for elective carotid endarterectomy with patch angioplasty. We did work him up for possible stenting but is plaque was too calcific. Description of Procedure: After written informed consent was obtained the patient all risks benefits and competitions were described the patient is brought to the operative suite and laid in a supine position. The area of the neck was prepped and draped in usual sterile fashion after appropriate anesthetic was performed per the anesthesiologist. A timeout was performed in normal fashion antibiotics were administered prior to incision. An oblique incision was then created just anterior to the sternocleidomastoid musculature with a 10 blade scalpel and dissection was carried down to the carotid sheath. The carotid sheath was then entered after facial vein was located and suture ligated in normal fashion. The common carotid, internal carotid, external carotid and superior thyroid arteries were located and dissected free in a meticulous fashion circumferentially and controlled with vessel loops. Attention was then placed to locating the vagus nerve as well as hypoglossal nerve which were both spared. Once controlled patient was administered heparin and followed with ACTs for appropriate heparinization. Once ACT was above 200 the proximal and distal aspects of the dissection were then controlled with vascular clamps. Arteriotomy was then created with 11 blade scalpel and extended with Worthington Rajan scissors. Utilizing pressure tubing stump pressures were obtained and were 40. Sundt shunt was required and placed in the normal fashion. Endarterectomy was then performed with a [place] and elevator. The plaque was then feathered at the distal aspect and the internal carotid artery and removed. The area was copiously irrigated with heparinized saline and all free debris was removed. A 7-0 Prolene suture was then placed to tack the distal aspect of the dissection at the internal carotid artery. A 0.8 x 8 cm bovine pericardial patch was then chosen and patch angioplasty was performed with 6-0 Prolene suture in a running fashion. Prior to last sutures being placed the inflow was released flushing any free debris out of the patch. This was reclamped and the internal carotid artery was released revealing good brisk flow and was once again reclamped. The external carotid and superior thyroid artery were then released followed by the common carotid artery to allow any free debris to be flushed into the external system. Final sutures were placed and secured. Internal carotid artery control was then released. Good pulsatile flow was noted through the patch and a Doppler was utilized demonstrating good brisk flow into the internal, external carotid arteries without any signs of obstruction. Hemostasis was then assured with Surgicel. A 10-Luxembourger KENNETH drain was then placed in normal fashion and secured with 3-0 nylon suture. The incision was then closed in a multilayer fashion after hemostasis was assured. The skin was then cleansed and dressings were placed. Patient tolerated the procedure well and was following commands and moving all extremities. Patient was then sent to PACU for recovery.
[2020-01-28 13:28] LABS: Glucose,Whole Blood 144 mg/dL (75-99)
[2020-01-28 13:59] LABS: Basophils % (A) 0 %; Eosinophils % (A) 0 %; HCT 40.1 % (39.0-53.0); HGB 13.1 gm/dL (13.0-17.5); Lymphocytes # (A) 0.8 k/uL (1.0-4.8); Lymphocytes % (A) 7 %; MCHC 32.6 g/dL (31.0-37.0); MCV 91.9 fL (80.0-100.0); Mean Platelet Volume 8.5; Monocytes # (A) 0.2 k/uL (0-1.0); Monocytes % (A) 2 %; Neutrophils # (A) 9.1 k/uL (1.3-7.7); Neutrophils % (A) 90 %; Platelet Count 213 k/uL (150-450); RBC 4.36 m/uL (4.30-5.90); WBC 10.2 k/uL (3.8-10.6)
[2020-01-28 14:14] LABS: African American GFR (CKD) >90 (>60 ml/min/1.73 sqM); Anion Gap 7 mmol/L; Blood Urea Nitrogen 19 mg/dL (9-20); Calcium 8.9 mg/dL (8.4-10.2); Carbon Dioxide 25 mmol/L (22-30); Chloride 105 mmol/L (98-107); Glucose 140 mg/dL (74-99); Non-African American GFR(CKD) >90 (>60 ml/min/1.73 sqM); Potassium 4.5 mmol/L (3.5-5.1); Sodium 137 mmol/L (137-145)
[2020-01-28] MEDS: LACTATED RINGERS 1,000 ML IV SCH ×2 (14:48→16:25)
--- NOTE | 2020-01-28 15:28 | P.CNPUL ---
History of Present Illness Consult date: 01/28/20 Chief complaint: ICU management, post carotid artery surgery History of present illness: 74-year-old male patient with previous TIAs and right-sided weakness who underwent further workup and the CTA of the neck showed 90% stenosis of the left carotid artery. He presented today underwent a elective carotid endarterectomy with patch angioplasty. The surgery without any complication. Estimated blood loss was 100 mL. The patient was brought into the intensive care unit for further monitoring for the next 24 hours post carotid surgery. The patient is known to have hypertension hypothyroidism and hyperlipidemia. The patient has a hemoglobin A1c of 6.2. He has a history of prostate cancer treated by radiation therapy. The patient is currently awake and alert. Surgical wound site over the left neck area dry clean and intact. He is on heparin subcu for DVT prophylaxis and he has no cough or pain control. The patient is on lactated Ringer at the rate of 80 mL an hour. Morphine is using utilize for pain control. Review of Systems All systems: negative (For review of system was done and this is a 14 point review of system essentially negative other than things mentioned above in history of present illness.) Past Medical History Past Medical History: Cancer, CVA/TIA, Hypertension, Prostate Disorder, Thyroid Disorder Additional Past Medical History / Comment(s): hard of hearing, prostate cancer, chemo and radiation last 2017. no residual effects from CVA History of Any Multi-Drug Resistant Organisms: None Reported Past Surgical History: Back Surgery Additional Past Surgical History / Comment(s): partial thyroidectomy r/t growth, 3 or 4 back surgeries, Past Anesthesia/Blood Transfusion Reactions: Postoperative Nausea & Vomiting (PONV) Additional Past Anesthesia/Blood Transfusion Reaction / Comment(s): states "takes a long time waking up" Smoking Status: Never smoker - Past Family History Father Family Medical History: Myocardial Infarction ([place]) Additional Family Medical History / Comment(s): of [place] Mother Family Medical History: CVA/TIA Additional Family Medical History / Comment(s): of stroke Sister(s) Family Medical History: Diabetes Mellitus Brother(s) Family Medical History: CVA/TIA Additional Family Medical History / Comment(s): of brain bleed stroke Medications and Allergies Home Medications Medication Instructions Recorded Confirmed Type Calcium Carbonate [Calcium] 1,200 mg PO DAILY 01/13/20 01/22/20 History Glucosam/Jimy-Msm1/C/Ezequiel/Bosw 2 tab PO DAILY 01/13/20 01/22/20 History [Glucosamine-Chondroitin Tablet] Levothyroxine Sodium [Synthroid] 50 mcg PO DAILY 01/13/20 01/28/20 History Multivitamins, Thera [Multivitamin 1 tab PO DAILY 01/13/20 01/22/20 History (formulary)] [place]-3 Fatty Acids [[place]-3] 1,000 mg PO DAILY 01/13/20 01/22/20 History Aspirin EC [Ecotrin Low Dose] 81 mg PO DAILY #30 tablet. 01/15/20 01/28/20 Rx Atorvastatin [Lipitor] 40 mg PO HS #30 tab 01/15/20 01/22/20 Rx Clopidogrel [Plavix] 75 mg PO DAILY #30 tab 01/15/20 01/28/20 Rx Losartan Potassium [Cozaar] 25 mg PO HS 01/22/20 01/22/20 History Allergies Allergy/AdvReac Type Severity Reaction Status Date / Time No Known Allergies Allergy Verified 01/22/20 15:50 Physical Exam Vitals: Vital Signs Temp Pulse Pulse Resp BP BP Pulse Ox 01/28/20 13:30 52 L 12 120/65 96 01/28/20 13:20 56 L 17 115/62 95 01/28/20 13:10 98.1 F 55 L 4 L 115/62 95 01/28/20 13:00 98.1 F 56 L 23 115/62 115/62 94 L 01/28/20 12:59 115/62 01/28/20 12:45 55 L 16 112/58 95 01/28/20 12:31 54 L 16 103/57 93 L 01/28/20 12:15 49 L 16 111/56 97 01/28/20 11:57 97.8 F 60 16 121/58 98 01/28/20 08:35 97.0 F L 63 17 131/66 98 Intake and Output 01/27/20 01/28/20 01/28/20 22:59 06:59 14:59 Intake Total 1653.0 Output Total 50 Balance 1603.0 Intake: IV 1653.0 Output: Estimated Blood Loss 50 ABP, PAP, CO, CI - Last 8 Hours Arterial Blood Pressure 139/57 The patient appeared well nourished and normally developed. Vital signs as documented. Head exam is unremarkable. No scleral icterus or corneal arcus noted. Neck is without jugular venous distension, thyromegaly, or carotid bruits. Carotid upstrokes are brisk bilaterally. The surgical wound site over the left neck area dry clean and intact at this point in time. The patient also has a KENNETH drain with minimal amount of output in the order of 30 mL. Lungs are clear to auscultation and percussion. Cardiac exam reveals the PMI to be normally sized and situated. Rhythm is regular. First and second heart sounds normal. No murmurs, rubs or gallops. Abdominal exam reveals normal bowel sounds, no masses, no organomegaly and no aortic enlargement. Extremities are nonedematous and both femoral and pedal pulses are normal.Examination of the skin revealed no evidence of significant rashes, suspicious appearing nevi or other concerning lesions.Neurologically, the patient is awake and alert and the patient does not have any focal neurological deficit. Cranial nerves are essentially intact. Results - Laboratory Findings CBC and BMP: 01/28/20 13:25 01/28/20 13:37 Abnormal lab findings: Abnormal Labs 01/28/20 01/28/20 13:25 13:26 Neutrophils # 9.1 H Lymphocytes # 0.8 L POC Glucose (mg/dL) 144 H Assessment and Plan Plan: 1 left carotid endarterectomy and the patient is postop day #0. 2 history of TIAs, recurrent with a possibility of cortical and subcortical foci of acute infarct ranging between 3 mm and 1.3 cm involving the left parietal occipital junction. 3 bilateral internal carotid artery stenosis severe on the left 4 hypertension 5 hypothyroidism 6 hyperlipidemia 7 prostate cancer with a previous radiation therapy to the prostate Plan Monitor the patient intensive care unit Close monitoring of the blood pressure Monitor surgical wound Neurologic exam post carotid surgery Resume all medications including the Synthroid and Lipitor. We'll discuss resuming aspirin and Plavix within next 24 hours with vascular surgery.
[2020-01-28] MEDS ORDERED: hydrALAZINE HCL 20 MG/ML 1 ML VIAL IVP PRN (16:52)
[2020-01-28] MEDS ORDERED: LOSARTAN 25 MG TAB PO SCH (21:00)
[2020-01-28] MEDS ORDERED: ATORVASTATIN 40 MG TAB PO SCH (21:00)
[2020-01-28] MEDS: HEPARIN SODIUM,PORCINE 5,000 UNIT/ML 1 ML VIAL SQ SCH (21:50)
--- NOTE | 2020-01-29 00:22 | CONS ---
CONSULTATION 74-year-old white male with history of TIA, carotid stenosis on the left side greater than 90% LCA left internal carotid artery status post carotid endarterectomy. Remains in ICU. Stable. On 2to 3 L. PAST MEDICAL HISTORY: History of hypothyroidism, prostate disorder, hypertension, CVA, TIA, history of prostate cancer, difficulty hearing, chemo radiation 2018. PAST SURGICAL HISTORY: Back surgery, partial thyroidectomy, 3-4 back surgeries. SOCIAL HISTORY: Never smoking. FAMILY HISTORY: Father myocardial infarction, mother CVA/TIA, sister with diabetes mellitus. Brother CVA and TIA MEDICATIONS: Home medicines Synthroid 50 mcg today, multivitamin, [place]-2 1000 daily, Lipitor 40 daily, Plavix 75 daily, Cozaar 25 daily. ALLERGIES: No known drug allergies. PHYSICAL EXAMINATION: Temp 97, pulse 60 to 63, respiratory 16 to 18, blood pressure 130s over 60s, O2 98. Pupils equal, round, reactive to light and accommodation. Lungs clear. CARDIOVASCULAR: S1, S2. Abdomen is soft, nontender. Integument: No cyanosis, clubbing, edema. IMPRESSION: 1. Status post left internal carotid artery surgery endarterectomy. 2. Recent transient ischemic attack. 3. Right-sided weakness. Continue current home medicines. Risk factor modification. MMODL / IJN: [id number] /
[2020-01-29] MEDS ORDERED: LEVOTHYROXINE 50 MCG TAB PO SCH (06:30)
[2020-01-29] MEDS: HEPARIN SODIUM,PORCINE 5,000 UNIT/ML 1 ML VIAL SQ SCH (08:23)
[2020-01-29] MEDS ORDERED: CALCIUM CARBONATE 500 MG CHEWABLE PO SCH (09:00)
[2020-01-29] MEDS ORDERED: MULTIVITAMINS, THERA 1 EACH TAB PO SCH (09:00)
[2020-01-29] MEDS ORDERED: ASPIRIN 81 MG PO SCH (09:00)
[2020-01-29] MEDS ORDERED: CLOPIDOGREL 75 MG TAB PO SCH (09:00)
[2020-01-29 12:03] VITALS: TEMP 98.2
--- NOTE | 2020-01-29 12:25 | P.DS ---
Providers Date of admission: 01/28/20 07:28 Expected date of discharge: 01/29/20 Attending physician: Jalil Oconnor DO Consults: 01/28/20 11:40 Consult Physician Routine Consulting Provider: Eboni Boone Consult Reason/Comments: icu care Do you want consulting provider notified?: Yes 01/28/20 11:44 Consult Physician Routine Consulting Provider: Girish Ferraro Consult Reason/Comments: medical management Do you want consulting provider notified?: Yes Primary care physician: Stated None Hospital Course: This is a 74-year-old male with recent hospitalization for right-sided weakness, TIA and was found to have greater than 90% stenosis of the left ICA. He has a past medical history that includes prostate cancer, CVA/TIA, hypertension, prostate disorder, thyroid disorder. The patient was discharged home with impending plan to come back as an outpatient for a left carotid endarterectomy Dr. Oconnor. Patient underwent procedure yesterday and is postop day 1 for left carotid endarterectomy with patch angioplasty. He denies any focal deficits, however does state that has some discomfort and difficulty with swallowing. He denies any weakness to bilateral upper or lower lower extremities, denies any visual or speech changes. His [place] catheter has been discontinued. His arterial line and KENNETH drain are still intact. Dressing is intact with small amount of serosanguineous drainage. Assessment: General appearance: The patient is alert, oriented, in no acute distress. HET: Head is normocephalic and atraumatic. Pupils are equal and reactive. There is mild left deviation of tongue with protrusion. Neck: Supple without lymphadenopathy. Trachea midline. Left surgical site with dressing with small amount of serosanguineous drainage, KENNETH drain intact with approximately 10 mL of serosanguineous drainage. Heart: S1 S2. Regular rate and rhythm. Lungs: No crackles or wheezes are heard. Extremities: Normal skin color and turgor. No cyanosis, rash, ulceration, clubbing, or edema. Radial and pedal pulses are 2/4 bilaterally. Neurological: Speech is fluent and appropriate. Mild left deviation of tongue with protrusion. Strength and sensation are grossly intact. ASSESSMENT: 1. Postop day 1 left carotid endarterectomy with patch angioplasty 2. TIA 3. Left internal carotid artery stenosis PLAN: KENNETH drain and arterial line to be discontinued. Patient to be evaluated by speech pathology for swallow and speech evaluation. If cleared by speech pathology patient may be discharged home today. Patient to follow-up with Dr. Oconnor within 2 weeks. No heavy lifting or strenuous activity. May shower tomorrow, no tub bathing until further evaluation by Dr. Oconnor. Continue current medications. Pertinent Studies: Patient was evaluated by speech pathology and passed a swallow test without any difficulty as reported by ICU. Report pending. Procedures: Left carotid endarterectomy with patch angioplasty Patient Condition at Discharge: Good Plan - Discharge Summary Discharge Rx Participant: Yes New Discharge Prescriptions: Continue Multivitamins, Thera [Multivitamin (formulary)] 1 tab PO DAILY Glucosam/Jimy-Msm1/C/Ezequiel/Bosw [Glucosamine-Chondroitin Tablet] 2 tab PO DAILY [place]-3 Fatty Acids [[place]-3] 1,000 mg PO DAILY Levothyroxine Sodium [Synthroid] 50 mcg PO DAILY Calcium Carbonate [Calcium] 1,200 mg PO DAILY Aspirin EC [Ecotrin Low Dose] 81 mg PO DAILY #30 tablet. Atorvastatin [Lipitor] 40 mg PO HS #30 tab Clopidogrel [Plavix] 75 mg PO DAILY #30 tab Losartan Potassium [Cozaar] 25 mg PO HS Discharge Medication List Calcium Carbonate [Calcium] 1,200 mg PO DAILY 01/13/20 [History] Glucosam/Jimy-Msm1/C/Ezequiel/Bosw [Glucosamine-Chondroitin Tablet] 2 tab PO DAILY 01/13/20 [History] Levothyroxine Sodium [Synthroid] 50 mcg PO DAILY 01/13/20 [History] Multivitamins, Thera [Multivitamin (formulary)] 1 tab PO DAILY 01/13/20 [History] [place]-3 Fatty Acids [[place]-3] 1,000 mg PO DAILY 01/13/20 [History] Aspirin EC [Ecotrin Low Dose] 81 mg PO DAILY #30 tablet. 01/15/20 [Rx] Atorvastatin [Lipitor] 40 mg PO HS #30 tab 01/15/20 [Rx] Clopidogrel [Plavix] 75 mg PO DAILY #30 tab 01/15/20 [Rx] Losartan Potassium [Cozaar] 25 mg PO HS 01/22/20 [History] Follow up Appointment(s)/Referral(s): Jalil Oconnor DO [STAFF PHYSICIAN] - 2 Weeks Activity/Diet/Wound Care/Special Instructions: May shower tomorrow. No tub bathing until further evaluated by Dr. Oconnor. No heavy lifting greater than 10 pounds for the next 10-14 days. Discharge Disposition: HOME SELF-CARE
[2020-01-29 13:09] VITALS: BP 130/69; PULSE 52; RESP 22
--- NOTE | 2020-01-29 13:51 | P.PN ---
Subjective Progress Note Date: 01/29/20 01/29/2020, the patient is postop day #1. Doing extremely well. KENNETH drain has been removed. Arterial line is removed. Hemodynamic is stable. Restarted back on a combination of aspirin and Plavix. No focal neurological deficit. No headaches. Moving all 4 extremities without any limitation. No altered mentation. No difficulty with speech. No other significant events overnight. Outpatient medications have been ordered resume. Objective - Vital Signs Vital signs: Vital Signs Temp 98.2 F 01/29/20 12:00 Pulse 52 L 01/29/20 13:00 Resp 22 01/29/20 13:00 BP 130/69 01/29/20 13:00 Pulse Ox 97 01/29/20 13:00 Intake & Output 01/28/20 01/29/20 01/29/20 18:59 06:59 18:59 Intake Total 2213.0 200 20 Output Total 920 1060 1070 Balance 1293.0 -860 -1050 Weight 91.4 kg Intake: IV 1653.0 200 20 Lactated Ringers 1,000 ml 200 20 @ 20 mls/hr IV .Q24H ANNA Rx#:[id number] Intake, IV Titration 560 Amount Lactated Ringers 1,000 ml 560 @ 80 mls/hr IV .[id number] ANNA Rx#:[id number] Output: Drainage 70 10 20 Left Neck 70 10 20 Urine 800 1050 1050 Estimated Blood Loss 50 Other: Voiding Method Urinal ABP, PAP, CO, CI - Last Documented Arterial Blood Pressure 117/45 - Exam The patient appeared well nourished and normally developed. Vital signs as documented. Head exam is unremarkable. No scleral icterus or corneal arcus noted. Neck is without jugular venous distension, thyromegaly, or carotid bruits. Carotid upstrokes are brisk bilaterally. The patient had a surgical scar over the left carotid area and the KENNETH drain has been moved this morning without evidence of any hematoma and the surgical wound site is dry clean and intact. Lungs are clear to auscultation and percussion. Cardiac exam reveals the PMI to be normally sized and situated. Rhythm is regular. First and second heart sounds normal. No murmurs, rubs or gallops. Abdominal exam reveals normal bowel sounds, no masses, no organomegaly and no aortic enlargement. Extremities are nonedematous and both femoral and pedal pulses are normal.Examination of the skin revealed no evidence of significant rashes, suspicious appearing nevi or other concerning lesions.Neurologically, the patient is awake and alert and the patient does not have any focal neurological deficit. Cranial nerves are essentially intact. - Labs CBC & Chem 7: 01/28/20 13:25 01/28/20 13:37 Labs: Abnormal Lab Results - Last 24 Hours (Table) 01/28/20 01/28/20 Range/Units 13:25 13:37 Neutrophils # 9.1 H (1.3-7.7) k/uL Lymphocytes # 0.8 L (1.0-4.8) k/uL Glucose 140 H (74-99) mg/dL Assessment and Plan Plan: 1 left carotid endarterectomy and the patient is postop day #1. The patient is doing well. Neurologically intact. KENNETH drain has been removed. Start back on a combination of aspirin and Plavix. 2 history of TIAs, recurrent with a possibility of cortical and subcortical foci of acute infarct ranging between 3 mm and 1.3 cm involving the left parietal occipital junction. 3 bilateral internal carotid artery stenosis severe on the left 4 hypertension 5 hypothyroidism 6 hyperlipidemia 7 prostate cancer with a previous radiation therapy to the prostate Plan Continue aspirin and Plavix Discontinue the KENNETH drain Discontinue the arterial line Close monitoring of the blood pressure Monitor surgical wound Continue the Lipitor Possible discharge today
== END 2020-01-29 13:21 | disposition home or self-care (01) | DRG 39 ==
LOC: 2ORMAIN 07:28 → 2SICU 12:15
PROVIDERS: ADMIT Surgery; ATTEND Surgery
PROC: 03CL0ZZ Extirpation of Matter from Left Internal Carotid Artery, Open Approach (ICD-10-PCS; principal; 2020-01-28 09:15)
PROC: 03UL0KZ Supplement Left Internal Carotid Artery with Nonautologous Tissue Substitute, Open Approach (ICD-10-PCS; principal; 2020-01-28 09:15)
DX: I65.22 Occlusion and stenosis of left carotid artery (principal); E89.0 Postprocedural hypothyroidism; E78.5 Hyperlipidemia, unspecified; H91.90 Unspecified hearing loss, unspecified ear; I10 Essential (primary) hypertension; R13.10 Dysphagia, unspecified; Z79.02 Long term (current) use of antithrombotics/antiplatelets; Z79.82 Long term (current) use of aspirin; Z79.890 Hormone replacement therapy; Z79.899 Other long term (current) drug therapy; Z82.3 Family history of stroke; Z82.49 Family history of ischemic heart disease and other diseases of the circulatory system; Z83.3 Family history of diabetes mellitus; Z85.46 Personal history of malignant neoplasm of prostate; Z86.73 Personal history of transient ischemic attack (TIA), and cerebral infarction without residual deficits; Z92.3 Personal history of irradiation; Z92.21 Personal history of antineoplastic chemotherapy; Z88.6 Allergy status to analgesic agent
CPT/HCPCS: 80048; 85025; 86850; 86900; 86901; 88304; 88311

== ENCOUNTER → 2021-08-05 | Outpatient (CLI) | payer MEDICARE, BC ==
[2021-08-05 11:11] VITALS: BP 151/73; PULSE 68; RESP 18; TEMP 98.1
--- NOTE | 2021-08-05 11:21 | P.CON ---
Consult Note - . Consult date: 08/05/21 Assessment/Plan:: HISTORY OF PRESENT ILLNESS: 76 year old male with at side as a referral from [facility] with a history of lumbar pain due to severe spinal stenosis, severe neuroforaminal narrowing, disc bulges, facet arthropathy and bilateral hip degenerative joint disease presents today with lower back pain and bilateral hip pain for an evaluation. Patient states that he fell from a roof 5 years ago and has been suffering with lower back pain since. Pain in his low lumbar spine and bilateral hips is 5 out of 10 in intensity but escalates up to 10 out of 10 intensity by evening of the exacerbation like walking and weightbearing. Pain is dull and achy in character and his lumbar spine but stabbing in his hips bilaterally. He is more concerned was treating his bilateral hip pain as that has been incapacitating his ability to ambulate. Pain is alleviated with medications, topicals, heat, physical therapy in January 2021, use of a cane for ambulatory assistance, use of a back brace, use of a walker as needed and rest. 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 Occassional ETOH use. Family History: Father- [place]. Mother- CVA/ TIA. Sister- [place]. Brother- CVA/ TIA All: NKDA Meds: See list REVIEW OF ORGAN SYSTEMS: CONSTITUTIONAL: No fevers or chills. No recent weight loss. HEENT: No visual acuity loss, eye pain, difficulties with hearing. No nosebleeds. No difficulty swallowing. RESPIRATORY: Denies any troubles with breathing or dyspnea on exertion. CARDIOVASCULAR: Denies any chest pain, palpitations, or recent heart attacks. GASTROINTESTINAL: Denies fatty food intolerance. Has change in bowel habits and gas bloat. GENITOURINARY: Denies any blood in urine. Has increased urinary frequency. NEUROLOGICAL: + numbness and tingling along the distal extremities. No seizure disorders or headaches. MUSCULOSKELETAL: + back pain SKIN: No skin cancer. No rash. PSYCHIATRIC: Denies current depression or suicidal thoughts. ENDOCRINE: Denies current thyroid disorders. Denies any b lood sugar glucose intolerance. HEME/LYMPHATIC: Denies any lumps and bumps around the neck. History of deep venous thrombosis. ALLERGY/IMMUNOLOGY: No immunoglobulin therapy. No immune deficiencies. BREAST: Denies current breast lumps, pain or nipple discharge. Physical Examinations : Constitutional : Cooperative , not in acute distress . HEENT: Neck supple. No Lymphadenopathy. Normal thyroid size . Eyes no ptosis , no icterus, no photophobia . Hearing intact. Normal oropharynx. No Thrush. Respiratory : Chest clear to auscultations bilaterally. No wheezing. No rhonchi. Cardiovascular : Regular rate and rhythm , S1 / S2. No S3 . No S4. Gastrointestinal : Abdomen soft. No tenderness. Bowel sounds x 4. No organomegaly . Genitourinary : Deferred. Neurologic : Cranial nerve II to XII intact. No focal neurological deficits. Psychiatric : alert & oriented x 3. Matching mood & appropriate affect. Judgment & insight intact. Lymphatic No Lymphadenopathy. Musculoskeletal : Cervical Spine Motor strength in the deltoid and biceps: Normal right side. Normal Left side Motor strength biceps and the wrist extensors: Normal right side . Normal left side Motor strength in the triceps muscle: Normal right side. Normal left side Deep tendon reflexes: Normal at the biceps. Normal at Brachioradialis. Normal at triceps Cervical facet loading test: positive bilaterally Spurling test: positive bilaterally Neck distraction test: positive bilaterally Stephanie sign: positive bilaterally Lumbar spine Motor strength lower extremities ,thigh and legs 4/5 Right side , 5/5 Left side Deep tendon reflexes : Normal Knee Jerk. Normal Ankle Jerk Lumbar facet Loading Test: positive Right / positive Left Range of motion of the lumbar spine Flexion 60 degrees, extension 10 degrees Straight Leg Raise test: Left/ Right positive at degree Kym test: positive right / positive left. Severe tenderness over the Sacroiliac joint on the Right / Left sides Gaenslen test: positive bilaterally Seated flexion test: positive r ight>left Imaging: MRI of the lumbar spine from 12/16/2020 reviewed X-ray of the bilateral hips from 07/13/2021 reviewed Assessment/ Plan : Recommendation for bilateral trochanteric injection of the hips Discussed that patient may need a series of treatments for sufficient pain relief Risks, benefits of procedure discussed and patient verbalized understanding Denies aspirin to her anticoagulant use All questions answered I have spent greater than 50 minutes on patient care today. Dr Manning was available by phone for the evaluation of this patient. The time was used to review the medical records including relevant urine studies and Prescription history (MAPs), review of the available imaging, evaluation and examination of the patient, coordination of care with the medical staff and if applicable referring physicians, as well as creation of the medical record PQRS Measure Charge Sheet Mode of Arrival: Ambulatory - Pain Location Lower Back Non-Pharmacological Interventions: Heat, Inactivity, Physical Therapy Pharmacological Interventions: PRN Medication, Topical Medication PQRS Narrative: Blood Pressure 151/73 Pain Intensity [Lower Back] 5 Scale Used Numeric (1 - 10) Hx Alcohol Use (MH) No Home Medications: Ambulatory Orders Calcium Carbonate [Calcium] 1,200 mg PO DAILY 01/13/20 Glucosam/Jimy-Msm1/C/Ezequiel/Bosw [Glucosamine-Chondroitin Tablet] 2 tab PO DAILY 01/13/20 Levothyroxine Sodium [Synthroid] 50 mcg PO DAILY 01/13/20 Multivitamins, Thera [Multivitamin (formulary)] 1 tab PO DAILY 01/13/20 [place]-3 Fatty Acids [[place]-3] 1,000 mg PO DAILY 01/13/20 Aspirin EC [Ecotrin Low Dose] 81 mg PO DAILY #30 tablet. 01/15/20 Atorvastatin [Lipitor] 40 mg PO HS #30 tab 01/15/20 Clopidogrel [Plavix] 75 mg PO DAILY #30 tab 01/15/20 Losartan Potassium [Cozaar] 25 mg PO HS 01/22/20
== END | disposition home or self-care (01) ==
LOC: PNWHC3 10:00
PROVIDERS: ATTEND Physician Assistant Medical
DX: M54.16 Radiculopathy, lumbar region (principal); M25.9 Joint disorder, unspecified
CPT/HCPCS: 99211

== ENCOUNTER 2021-08-31 11:54 | Day surgery (SDC) | payer MEDICARE, BC ==
[2021-08-31 12:35] VITALS: TEMP 97.4
[2021-08-31] MEDS ORDERED: LACTATED RINGERS 1,000 ML IV ONE (12:41)
[2021-08-31] MEDS ORDERED: fentaNYL (PF) 50 MCG/ML 2 ML AMP ONE (13:23)
[2021-08-31] MEDS ORDERED: ROPIVACAINE 5MG/ML 20ML VIAL ONE (13:23)
[2021-08-31] MEDS ORDERED: MIDAZOLAM 2 MG/2 ML VIAL ONE (13:23)
[2021-08-31] MEDS ORDERED: TRIAMCINOLONE ACETONIDE 40 MG/ML 1 ML VIAL ONE (13:23)
--- NOTE | 2021-08-31 13:38 | P.PCN ---
Date of Procedure: 08/31/21 Description of Procedure: Pre OP diagnoses: RIGHT trochanteric bursitis Postoperative diagnosis: RIGHT trochanteric bursitis. Operation: Bilateral trochanteric bursa steroid injection under fluoroscopy guidance. Anesthesia: IV sedation with Versed 1mg and 50mcq fentanyl with lidocaine 1% 2 mL Complications: none . Description of the procedure: 76-year-old male with a history of prostate cancer with metastatic lesions to the spine. Has chief complaints of significant tenderness to his bilateral trochanteric versus. Has to believe laying on either side right is worse than left. Patient had history of severe low back pain and hip pain secondary to trochanteric bursitis for this reason patient was a good candidate to have trochanteric bursa steroid injection which hopefully it will help his pain, risks and benefits of the procedure including but not limited to risk of infecti on and bleeding. Patient was taken to the operating room placed in supine position or standard monitors applied patient and after induction of anesthesia the back and the hip area prepped with chlorhexidine 3 times, and under sterile technique using 25-gauge needle for skin and subcutaneous tissue infiltration was first admitted the right trochanteric bursa injection at 22-gauge Quincke- type spinal needle advanced slowly under fluoroscopy and placed in the right trochanteric bursa needle placement confirmed with AP view and after appropriate needle placement confirmed under fluoroscopy 3 ML of ropivacaine 0.5% mixed with 40 mg of Kenalog with 4 mL spread equally to each bursa and injected after negative aspiration for heme and there was no CSF and there was no paresthesia during the injection and needle removed and a dressing applied. patient tolerated the procedure well without any complication and she will follow up with the pain clinic in a few weeks and patient discharged home in stable condition
[2021-08-31] MEDS ORDERED: LACTATED RINGERS 1,000 ML IV SCH (13:40)
[2021-08-31] MEDS ORDERED: LIDOCAINE 1% (10MG/ML) FOR IV START INTRADERMA PRN (13:40)
[2021-08-31 13:44] VITALS: RESP 18
[2021-08-31 13:57] VITALS: BP 152/81; PULSE 54
[2021-08-31] MEDS ORDERED: IV FLUID CONTINUATION 1,000 ML IV ONE (13:57)
--- NOTE | 2021-08-31 15:15 | FL ---
Fluoroscopy HISTORY: Pain 3 seconds fluoroscopy time supplied to the referring clinician. 1 intraoperative C-arm images docume nt the procedure. See dictated report from anesthesia.
== END 2021-08-31 14:11 | disposition home or self-care (01) ==
LOC: ORPAIN 11:54
PROVIDERS: ATTEND Anesthesiology
DX: M70.61 Trochanteric bursitis, right hip (principal); Z85.46 Personal history of malignant neoplasm of prostate; Z85.830 Personal history of malignant neoplasm of bone
CPT/HCPCS: 77002; 20610; J2250; J3301; J3010; J2795; 99152

== ENCOUNTER → 2021-12-09 | Outpatient (CLI) | payer MEDICARE, BC ==
--- NOTE | 2021-12-09 16:39 | MR ---
MRI right hip HISTORY: Right hip pain Multiplanar multisequence imaging obtained through the pelvis with small [id number] imaging throug h the right hip. Exam is correlated to plain film dated 12/01/2021 Serpiginous low signal on T1 and T2-weighted sequences with some associated hyperintensity and T1 and T2-weighted sequences is consistent with osteonecrosis in the bilateral hips. There is heterogeneous increased signal on T2, intermediate signal on T1-weighted sequences at the level the acetabular lab ra which may represent ganglion cysts. Marginal spurring present in the femoral heads is consistent w ith osteoarthritis, there is grade 2 to grade III chondromalacia suspected within the right hip. Ther e is no evident fracture. Some mild increased uptake is present near the insertion of the gluteus ten don which may be labor union business representative of some mild strain of the cord is mediastinum. There is no sizable j oint effusion present. The origins of the string musculature show symmetric appearance. There is abnormal signal involving t he L3 and L2 vertebral bodies, intermediate signal on T1 with some scattered areas of low signal, low signal is also present on T2 with some associated increased signal also present. Diverticular change s are scattered within the colon especially in the sigmoid. Prostate appears enlarged. 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 Indeterminate signa l changes within the lumbar vertebral bodies, correlate for prior intervention, possible compression fractures, consider bone scan as indicated. Diverticulosis and additional findings described above.
== END | disposition home or self-care (01) ==
LOC: RADMRIMAIN 14:19
PROVIDERS: ATTEND Orthopaedic Surgery
DX: M16.0 Bilateral primary osteoarthritis of hip (principal); M87.88 Other osteonecrosis, other site

== ENCOUNTER 2021-12-16 06:04 | Day surgery (SDC) | payer MEDICARE, BC ==
[2021-12-06 10:45] VITALS: BMI 26.0
[2021-12-16] MEDS ORDERED: LIDOCAINE 1% (10MG/ML) FOR IV START INTRADERMA PRN (06:46)
[2021-12-16] MEDS ORDERED: LACTATED RINGERS 1,000 ML IV SCH (06:46)
[2021-12-16 06:51] VITALS: TEMP 97.1
[2021-12-16] MEDS ORDERED: MIDAZOLAM 2 MG/2 ML VIAL ONE (07:28)
[2021-12-16] MEDS ORDERED: ROPIVACAINE 5MG/ML 20ML VIAL ONE (07:28)
[2021-12-16] MEDS ORDERED: fentaNYL (PF) 50 MCG/ML 2 ML AMP ONE (07:28)
[2021-12-16] MEDS ORDERED: methylPREDNISolone ACETATE 40 MG/ML 1 ML VIAL ONE (07:28)
--- NOTE | 2021-12-16 07:45 | P.PCN ---
Date of Procedure: 12/16/21 Procedure(s) Performed: Pre- and Post-operative Diagnosis:1- Right-sided Trochanteric Bursitis.. 2- myofascial pain syndrome right-sided lumbar paraspinal muscles and right side gluteus aissatou muscle Procedure: 1-Right Greater Trochanteric Bursa injection under fluoroscopic guidance 2-trigger point injections right side lumbar paraspinal muscles and right side gluteus aissatou muscles total of 4 trigger point injected Anesthesia: Local: Moderate sedation with Versed 1 mg and fentanyl 50 g Complications: none Indications for Procedure: Patient had a history of greater trochanteric bursitis. Tried conservative therapy with minimal response. Came here for intervention procedure. Procedure and Findings: The patient was seen and examined. The written informed consent was obtained after explaining the risks, benefits and alternatives of the procedure to the patient. Patient agreed to proceed for the procedure signed the informed consent. The patient was brought to the procedure room and was placed in supine position on the operating table. The anesthesia was started as mentioned above and monitoring was done with noninvasive blood pressure cuff, EKG and pulse oximetry. The skin preparation was done with ChloraPrep 1, and draping was done in usual sterile fashion. Sterile technique was observed throughout the procedure. Sedation was given to decrease the patient's an exaggerated Using fluoroscope in the AP view, the greater trochanter was identified. The middle of the greater trochanter was targeted for needle placement. 3 ml of 1% Lidocaine was injected with a 25 gauge needle to achieve adequate local anesthesia of the skin and subcutaneous tissue. then 25 gauge needle was introduced and advanced into the target area under direct fluoroscopic guidance. A bony contact was felt and the needle was withdrawn for about two millimeters. A negative aspiration was confirmed. then total of 5ml solution containing depo-medrol 40 mg and 4 ml of 0.5% preservative-free ropivacaine was injected slowly. The needle was removed intact After that the trigger point injection done total of 4 trigger point was injected with ropivacaine 0.5% 2 mL injected at each trigger point after negative aspiration total of 4 trigger point injected and the right side lumbar paraspinal muscles on the right side gluteus aissatou muscles, injection done after negative aspiration and there was no paresthesia during the injection. The patient tolerated the procedure very well. Disposition : The patient was transferred to the recovery room and remained stable until discharged home. The patient was given detailed discharge instructions for infection, bleeding, increased pain at the injection site, and was advised to seek immediate medical attention should significant side effects develop. Patient was routinely examined by RN before discharging home. The patient will be followed up with Pain Clinic within 3 weeks.
[2021-12-16] MEDS ORDERED: IV FLUID CONTINUATION 1,000 ML IV ONE ×2 (07:46)
[2021-12-16 07:51] VITALS: BP 157/56; PULSE 55; RESP 16
--- NOTE | 2021-12-16 07:56 | FL ---
Fluoroscopy INDICATION: Pain FINDINGS: Fluoroscopy time: 1 seconds. Images obtained: 1. IMPRESSIONS: 1. Documentation of fluoroscopy.
== END 2021-12-16 08:23 | disposition home or self-care (01) ==
LOC: ORPAIN 06:04
PROVIDERS: ATTEND Specialist
DX: M70.61 Trochanteric bursitis, right hip (principal); M79.18 Myalgia, other site
CPT/HCPCS: 20553; 20610; J2250; J1030; J3010; J2795; 99152

== ENCOUNTER → 2022-01-10 | Outpatient (CLI) | payer MEDICARE, BC | END | disposition home or self-care (01) | LOC: LABPAT 10:37 | PROVIDERS: ATTEND Orthopaedic Surgery | DX: Z01.812 Encounter for preprocedural laboratory examination (principal); M16.11 Unilateral primary osteoarthritis, right hip | CPT/HCPCS: 87070 ==

== ENCOUNTER 2022-01-18 12:31 | Observation (INO) | payer MEDICARE, BC ==
[2022-01-14 17:10] VITALS: BMI 26.4
--- NOTE | 2022-01-17 13:50 | HP ---
HISTORY AND PHYSICAL CHIEF COMPLAINT: Right hip pain. 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 It has progressed over the past year, worsening recently. He is having groin and thigh pain, worse with any weightbearing activities. He is also having night symptoms. He has tried therapy in addition to an injection and medications without much relief. He notes daily pain that severely limits him. PAST MEDICAL HISTORY: Significant for arthritis, prostate cancer, gastroesophageal reflux disease, hepatitis C, hypertension, and hypothyroidism. PAST SURGICAL HISTORY: Significant for lumbar spine surgery times five. CURRENT MEDICATIONS: Aspirin, losartan, Synthroid in addition to Plavix. FAMILY HISTORY: Significant for stroke, heart disease and cancer. SOCIAL HISTORY: Significant for social alcohol use. REVIEW OF SYSTEMS: 16-point review of systems otherwise reviewed and is noncontributory. PHYSICAL EXAMINATION: On examination, the patient is approximately 6 foot 1, 200 pounds of endomorphic habitus. HEENT exam is nonfocal. Neck is supple. On examination of his right hip: Passive motion, flexion 80 degrees, external rotation with the hip flexed 60 degrees, internal rotation 0 degrees with pain. His distal neurovascular exam appears intact in the right lower extremity. AP and lateral views of the right hip obtained in the office show moderate joint space narrowing along with cystic changes along the femoral head and some irregularity. Previous MRI of the right hip shows evidence of avascular necrosis. IMPRESSION: 1. Right hip avascular necrosis. 2. History of prostate cancer. 3. History of multiple lumbar spine surgeries. 4. History of atrial fibrillation, on anticoagulation. RECOMMENDATIONS: I talked to the patient at length regarding his condition along with treatment options. At this point, he is quite symptomatic and limited because of pain related to his right hip avascular necrosis. After thorough discussion, he opts to proceed with surgery. We will plan to proceed with right total hip arthroplasty utilizing a lateral approach. Risks and benefits were discussed at length in layman's terms. We will likely reinstitute his Plavix postoperatively. MMODL / IJN: [id number] /
[~2022-01-18 12:31] MED LIST changes: +ACETAMINOPHEN TAB 500 MG TAB PO PRN; -DEXAMETHASONE SOD PHOSPHATE 10 MG/ML 1 ML VIAL IV ONE; -HYDROmorphone 0.5 MG/0.5 ML SYRINGE IVP PRN; -LACTATED RINGERS 1,000 ML IV SCH; +LIDOCAINE 1% (10MG/ML) FOR IV START INTRADERMA PRN; +MELOXICAM 7.5 MG TAB PO PRN; -MIDAZOLAM 2 MG/2 ML VIAL IV PRN; +TRANEXAMIC ACID IN NACL,ISO-OS 1,000 MG in SALINE 1 100ML.BAG IVPB PRN
[2022-01-18] MEDS: LACTATED RINGERS 1,000 ML IV SCH (13:10)
[2022-01-18] MEDS ORDERED: DEXAMETHASONE SOD PHOSPHATE 4 MG/ML 1 ML VIAL IVP ONE (13:52)
[2022-01-18] MEDS ORDERED: MIDAZOLAM 2 MG/2 ML VIAL IVP ONE (13:58)
--- NOTE | 2022-01-18 15:00 | P.ANPRN ---
Procedure Note - Anesthesia - Nerve Block Performed Right Erector Spinae Single Time Out Performed: Yes Date of Procedure: 01/18/22 Procedure Start Time: 13:07 Procedure Stop Time: 13:16 Location of Patient: PreOp Indication: Acute Post-Operative Pain, Requested by Surgeon Sedation Type: Sedate with meaningful contact maintained Preparation: Sterile Prep, Sterile Dressing Position: Prone Catheter: None Needle Types: Pajunk Needle Gauge: 20 Ultrasound used to visualize needle placement: Yes Ultrasound used to observe medication spread: Yes Injectate: 0.5% Ropivacaine (see comment for volume) (30 ml + decadron 4 mg) Blood Aspirated: No Pain Paresthesia on Injection Noted: No Resistance on Injection: Normal Image Stored and Saved: Yes Events: Uneventful and Well Tolerated
[2022-01-18] MEDS ORDERED: PROPOFOL 10 MG/ML 20 ML VIAL IV ONE (15:23)
[2022-01-18] MEDS ORDERED: GLYCOPYRROLATE 0.2 MG/ML 2 ML VIAL ONE (15:23)
[2022-01-18] MEDS ORDERED: DEXAMETHASONE SOD PHOSPHATE 4 MG/ML 1 ML VIAL ONE (15:23)
[2022-01-18] MEDS ORDERED: ROPIVACAINE 5 MG/ML 30 ML VIAL ONE (15:23)
[2022-01-18] MEDS ORDERED: SUCCINYLCHOLINE CHLORIDE 200 MG/10 ML VIAL IV ONE (15:23)
[2022-01-18] MEDS ORDERED: ePHEDrine 50 MG/ML 1 ML VIAL ONE (15:23)
[2022-01-18] MEDS ORDERED: ROCURONIUM 10 MG/ML (5 ML VIAL) IV ONE (15:23)
[2022-01-18] MEDS ORDERED: LIDOCAINE 2% INJ 20 MG/ML (2 ML VIAL) ONE (15:23)
[2022-01-18] MEDS ORDERED: fentaNYL (PF) 50 MCG/ML 2 ML AMP ONE (15:23)
[2022-01-18] MEDS ORDERED: TRANEXAMIC ACID IN NACL,ISO-OS 1,000 MG/100 ML BAG ONE (15:23)
[2022-01-18] MEDS ORDERED: NEOSTIGMINE 1 MG/ML 10 ML VIAL ONE (15:23)
[2022-01-18] MEDS ORDERED: NALOXONE 0.4 MG/ML 1 ML VIAL IV PRN (15:55)
[2022-01-18] MEDS ORDERED: HYDROcodone/APAP 5-325MG 1 EACH TAB PO PRN (15:55)
[2022-01-18] MEDS ORDERED: HYDROmorphone 0.5 MG/0.5 ML SYRINGE IVP PRN (15:55)
[2022-01-18] MEDS ORDERED: ceFAZolin 3,000 MG in SODIUM CHLORIDE 0.9% IRRIGATIO 3,000 ML IRRIGATION ONE (16:04)
--- NOTE | 2022-01-18 17:19 | P.OP ---
Date of Procedure: 01/18/22 Preoperative Diagnosis: Right hip avascular necrosis/osteoarthrosis Postoperative Diagnosis: Same Procedure(s) Performed: Right total hip arthroplastypress-fitlateral approach Implants: Depuy Corail size 13 collared press-fit standard femoral stem, 36+5 cobalt chrome femoral head, 60 mm [place] acetabular shell with neutral polyethylene liner. 6.5 mm x 30 mm cancellous screw. Anesthesia: YOBANIA Surgeon: Yoan Escalante Seismometer Operator #1: Trevor Plata Estimated Blood Loss (ml): 100 Pathology: other (Femoral head) Condition: stable Disposition: PACU Indications for Procedure: The patient's a 76-year-old male presents with progressive right hip pain secondary to avascular necrosis. A discussion of the risks and benefits of operative intervention versus conservative measures was made with patient. He opted to proceed with surgery. Operative risks to include infection, neurovascular injury, development of blood clots, leg length discrepancy, fracture, instability, possible component loosening/failure and need for mao bsequent procedures was discussed. Informed consent was obtained. Operative Findings: As below Description of Procedure: The patient was brought to the operating room, and after induction of spinal anesthesia was placed in a lateral decubitus position. The bony prominences were appropriately padded. The pelvis was stable perpendicular to the floor with a pegboard. The right lower extremity was prepped and draped in normal fashion. A 12 cm incision was then made centered over the greater trochanter extending superiorly to level the ASIS and distally in line with the femoral shaft. The skin and subcutaneous tissues were divided sharply. Electrocautery was used for hemostasis. The fascia marnie and gluteus aissatou fascia was split in line with the skin incision. The muscle fibers were bluntly dissected proximally. A self-retaining retractor was placed. The anterior and posterior margins of the gluteus medius muscles identified and the anterior two thirds was detached from the greater trochanter with electrocautery. The gluteus minimus tendon was identified and detached in a similar fashion. A wide capsulotomy was performed. The femoral neck fracture was identified in the lower neck cut was made approximately 1 1/2 cm above the level of the lesser trochanter with a sagittal saw at a 45 the shaft. The head was then extracted with a corkscrew. Attention was then paid towards preparing the acetabular. Anterior and posterior retractors were placed. The remaining capsular labral tissues debrided sharply clearly defining the acetabular margins. Began reaming with a 51 mm reamer taking care to initially medialize, then reaming at 45 of abduction and 20 of anteversion. Sequential reaming is performed up to 59 mm. This was down to bleeding bony surface. A trial 60 mm acetabular shell was inserted at 45 of abduction and 20 of anteversion. This was fully seated. There was good rim fit and stability. A neutral polyethylene liner was then impacted. Care taken to avoid any soft tissue interposition. Attention was then paid towards preparing the proximal femur. A box chisel was used to open t he metaphyseal region. A canal finder was used to find the femoral canal. Sequential broaching was performed up to a size 13. This is placed in 15 of anteversion with the leg perpendicular floor judging off the trans-epicondylar axis. There is good rotational stability. A calcar mill was used to fashion the medial calcar. A trial standard neck along with a 36 mm + 5 trial head was placed. The hip was gently reduced. It was taken through range of motion. I felt to be stable in flexion and extension with internal and external rotation. I felt there was adequate restorationism of soft tissue tension. The hip was gently dislocated. The trial components removed. Pulsatile lavage was utilized. The final size 13 standard collared femoral stem was inserted again with the leg perpendicular to the floor in 15 of anteversion. Again there was good rotational stability. A 36 mm + 5 cobalt chrome femoral head was gently impacted. The hip was gently reduced. Again it was taken through motion and felt to be stable in flexion and extension with internal and external rotation. Pulsatile lavage was again utilized. With the leg in abduction the gluteus minimus and medius tendons reattached to the greater trochanter with #2 Ethibond suture. There was minimal drainage therefore a deep drain was not placed. The fascia marnie and gluteus aissatou fascia was closed with #2 Ethibond suture. The subcutaneous tissues were reapproximated interrupted 2-0 Vicryl sutures. The skin was reapproximated with 3-0 subcuticular strata fix suture. Skin tape and adhesive was applied. A sterile dressing was applied. The patient was awoken from sedation and transferred to recovery room in good condition. Blood loss was estimated 100 mL. No complications were incurred. Sponge and needle counts were correct in the case. Bairon CORREA assisted during the major composes case to include exposure, implantation, and closure.
[2022-01-18] MEDS: HYDROmorphone 0.5 MG/0.5 ML SYRINGE IVP PRN ×3 (17:38→21:12)
--- NOTE | 2022-01-18 17:48 | XR ---
EXAMINATION TYPE: XR Hip Limited RT DATE OF EXAM: 01/18/2022 5:43 PM INDICATION: Patient age:Male; 76 years old; Reason for study: Status post hip surgery, assess surgical alignment; COMPARISON: None. TECHNIQUE: The right hip was examined in the frontal projections FINDINGS: Right hip arthroplasty changes. Hardware is intact and in appropriate alignment. Subcutaneo us lucencies along the lateral thigh consistent with surgery. No acute fractures identified. IMPRESSION: Total right arthroplasty with hardware intact and in appropriate alignment, no fractures identified.
[2022-01-18] MEDS ORDERED: LACTATED RINGERS 1,000 ML IV ONE (18:13)
[2022-01-18] MEDS: SENNOSIDES-DOCUSATE SODIUM 1 EACH TAB PO SCH (21:07)
--- NOTE | 2022-01-19 01:29 | P.PN ---
Progress Note - Text Progress Note Date: 01/19/22 patient was sleeping and was not willing to participate in the interview, reporting that he feels fine and wants to sleep
[2022-01-19] MEDS: HYDROmorphone 0.5 MG/0.5 ML SYRINGE IVP PRN ×2 (02:46→10:30)
[2022-01-19] MEDS: LACTATED RINGERS 1,000 ML IV SCH (05:36)
[2022-01-19] MEDS: LEVOTHYROXINE 50 MCG TAB PO SCH (05:36)
[2022-01-19] MEDS: ASPIRIN 81 MG PO SCH (09:31)
[2022-01-19] MEDS: CLOPIDOGREL 75 MG TAB PO SCH (09:31)
[2022-01-19 09:35] LABS: HCT 37.9 % (39.6-50.0); HGB 12.4 g/dL (13.0-17.0); MCV 91.8 fL (80.0-97.0); RBC 4.13 X 10*6/uL (4.40-5.60)
[2022-01-19 09:36] LABS: Basophils # (A) 0.02 X 10*3/uL (0.00-0.10); Basophils % (A) 0.2 %; Eosinophils # (A) 0 X 10*3/uL (0.04-0.35); Eosinophils % (A) 0 %; Immature Grans, Automated 0.5 %; Lymphocytes # (A) 0.94 X 10*3/uL (0.90-5.00); Lymphocytes % (A) 8.2 %; MCHC 32.7 g/dL (32.0-37.0); Mean Platelet Volume 11.3 fL (9.5-12.2); Monocytes # (A) 0.57 X 10*3/uL (0.20-1.00); NRBC Per 100 WBC 0 /100 WBCS (0.0-0.0); Neutrophils # (A) 9.91 X 10*3/uL (1.80-7.70); Neutrophils % (A) 86.1 %; Platelet Count 226 X 10*3/uL (140-440); RDW 13.6 % (11.5-14.5)
--- NOTE | 2022-01-19 10:41 | P.PN ---
Subjective Progress Note Date: 01/19/22 Principal diagnosis: Right hip avascular necrosis Patient was seen at bedside this morning resting comfortably sitting up in chair with legs elevated. Patient says he did get up with PT this morning and walked around room with walker. Patient says his hip in moderate amount of pain. Patient says he is having pain down his thigh as well. Patient denies chest pain, fever, shortness of breath, nausea, vomiting, change in vision, loss of bowel/bladder control. Objective - Vital Signs Vital signs: Vital Signs Temp 97.9 F 01/19/22 07:48 Pulse 57 L 01/19/22 07:48 Resp 18 01/19/22 08:00 BP 136/71 01/19/22 07:48 Pulse Ox 96 01/19/22 08:18 FiO2 Intake & Output 01/18/22 01/19/22 01/19/22 18:59 06:59 18:59 Intake Total 2251 240 Output Total 100 350 425 Balance 2151 -350 -185 Weight 89.8 kg 89.8 kg Intake: IV 2251 Oral 240 Output: Urine 350 425 Estimated Blood Loss 100 Other: # Voids 1 - Exam Right hip: Incision is clean, dry, and intact. The exofin fusion tape is in good c ondition. There is minimal soft tissue swelling and ecchymosis surrounding the medial and lateral aspects of the incision. Calf is soft, no tenderness with palpation. Plantar flexion, dorsiflexion, EHL, FHL are intact. Sensory exam to light touch throughout the extremity is intact, dorsal pedis pulses 2+. - Labs CBC & Chem 7: 01/19/22 06:25 Labs: Abnormal Lab Results - Last 24 Hours (Table) 01/19/22 Range/Units 06:25 WBC 11.50 H (4.50-10.00) X 10*3/uL RBC 4.13 L (4.40-5.60) X 10*6/uL Hgb 12.4 L (13.0-17.0) g/dL Hct 37.9 L (39.6-50.0) % Immature Gran # 0.06 H (0.00-0.04) X 10*3/uL Neutrophils # 9.91 H (1.80-7.70) X 10*3/uL Eosinophils # 0 L (0.04-0.35) X 10*3/uL Assessment and Plan Assessment: 1. Right hip avascular necrosis Postoperative day 1 status post right total hip arthroplasty, lateral approach Plan: 1. Right hip avascular necrosis - right total hip arthroplasty performed yest [place], 01/18/2022. Patient stable at bedside this morning. Plan for discharge home tomorrow with health services. 2. Appreciate medical management 3. DVT prophylaxis - Plavix; aspirin 4. Pain management - [place] 5. GI prophylaxis - Colace 6. PT/OT - weightbearing as tolerated with walker 7. Encourage incentive spirometer 8. Discharge planning - plan for home tmrw with health services Time with Patient: Less than 30
[2022-01-19] MEDS: HYDROcodone/APAP 7.5-325MG 1 EACH TAB PO PRN (13:10)
[2022-01-19] MEDS: SENNOSIDES-DOCUSATE SODIUM 1 EACH TAB PO SCH (19:56)
[2022-01-19] MEDS ORDERED: LOSARTAN 25 MG TAB PO SCH (21:00)
[2022-01-20] MEDS: HYDROcodone/APAP 7.5-325MG 1 EACH TAB PO PRN ×3 (01:29→13:13)
[2022-01-20 02:00] VITALS: RESP 18
[2022-01-20] MEDS: LEVOTHYROXINE 50 MCG TAB PO SCH (05:55)
[2022-01-20 07:26] VITALS: BP 157/70; PULSE 61; TEMP 98.7
[2022-01-20 08:40] LABS: Basophils # (A) 0.05 X 10*3/uL (0.00-0.10); Basophils % (A) 0.6 %; Eosinophils # (A) 0.12 X 10*3/uL (0.04-0.35); Eosinophils % (A) 1.4 %; HCT 34.3 % (39.6-50.0); HGB 11.2 g/dL (13.0-17.0); Immature Grans, Automated 0.4 %; Lymphocytes % (A) 18.9 %; MCH 30.4 pg (27.0-32.0); MCHC 32.7 g/dL (32.0-37.0); Mean Platelet Volume 11.4 fL (9.5-12.2); Monocytes # (A) 0.69 X 10*3/uL (0.20-1.00); Monocytes % (A) 8.1 %; NRBC Per 100 WBC 0 /100 WBCS (0.0-0.0); Neutrophils # (A) 5.98 X 10*3/uL (1.80-7.70); Neutrophils % (A) 70.6 %; Platelet Count 186 X 10*3/uL (140-440); RBC 3.69 X 10*6/uL (4.40-5.60); RDW 13.8 % (11.5-14.5); WBC 8.47 X 10*3/uL (4.50-10.00)
[2022-01-20] MEDS: ASPIRIN 81 MG PO SCH (09:19)
[2022-01-20] MEDS: CLOPIDOGREL 75 MG TAB PO SCH (09:20)
--- NOTE | 2022-01-20 10:22 | P.CONS ---
History of Present Illness - Reason for Consult Consult date: 01/20/22 medical management. - Chief Complaint medical management. - History of Present Illness Patient is a 76-year-old male with a past medical history significant for arthritis, prostate cancer, GERD, hepatitis C, essential hypertension and hypothyroidism. Patient states that he also has a history of a mini stroke with left endarterectomy for which she was put on aspirin and Plavix. Internal medi cine was consulted for medical management. Patient is admitted under orthopedic service for right hip avascular necrosis patient underwent right total knee arthroplasty lateral approach currently postoperative day 2. Patient was examined at bedside not complaining of any worsening symptomatology currently rates the pain 5 out of 10 that gets better with pain medication when necessary. Vital signs continue to be stable. CBC reviewed showing leukocytosis improved at 8.47 no BMP completed. Case discussed with RN no overnight events. 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 no residual effects from CVA., PT STATES ER VISIT TO [facility] ON 11/27/21 AND RECEIVED STEROID INJECTION IN HIS HIP, STEROID DOSE PACK WHICH HE COMPLETED 12/03/21 AND ALSO RECEIVED A PAIN SHOT. History of Any Multi-Drug Resistant Organisms: None Reported Past Surgical History: Back Surgery Additional Past Surgical History / Comment(s): partial thyroidectomy r/t growth, mult back surgeries, left Carotid procedure Past Anesthesia/Blood Transfusion Reactions: Postoperative Nausea & Vomiting (PONV) Additional Past Anesthesia/Blood Transfusion Reaction / Comm: states "takes a long time waking up" Past Psychological History: No Psychological Hx Reported Smoking Status: Never smoker Past Alcohol Use History: Occasional Past Drug Use History: None Reported - Past Family History Father Family Medical History: Myocardial Infarction ([place]) Additional Family Medical History / Comment(s): of [place] Mother Family Medical History: CVA/TIA Additional Family Medical History / Comment(s): of stroke Sister(s) Family Medical History: Diabetes Mellitus Brother(s) Family Medical History: Cancer, CVA/TIA Additional Family Medical History / Comment(s): of brain bleed stroke,skin CA Medications and Allergies Home Medications Medication Instructions Recorded Confirmed Type Calcium Carbonate [Calcium] 1,200 mg PO DAILY 01/13/20 01/14/22 History Glucosam/Jimy-Msm1/C/Ezequiel/Bosw 2 tab PO DAILY 01/13/20 01/14/22 History [Glucosamine-Chondroitin Tablet] Levothyroxine Sodium [Synthroid] 50 mcg PO QAM 01/13/20 01/18/22 History Multivitamins, Thera [Multivitamin 1 tab PO DAILY 01/13/20 01/14/22 History (formulary)] [place]-3 Fatty Acids [[place]-3] 1,000 mg PO DAILY 01/13/20 01/14/22 History Aspirin EC [Ecotrin Low Dose] 81 mg PO DAILY #30 tablet. 01/15/20 01/14/22 Rx Clopidogrel [Plavix] 75 mg PO DAILY #30 tab 01/15/20 01/14/22 Rx Losartan Potassium [Cozaar] 25 mg PO HS 01/22/20 01/18/22 History Lidocaine 5% Patch [Lidoderm 5% 1 patch TOPICAL DAILY PRN 08/30/21 01/18/22 History Patch] Acetaminophen [Tylenol Arthritis] 650 mg PO Q6H PRN 01/14/22 01/18/22 History Allergies Allergy/AdvReac Type Severity Reaction Status Date / Time oxycodone AdvReac Nausea & Verified 01/18/22 12:57 Vomiting Physical Exam Vitals: Vital Signs Temp Pulse Resp BP Pulse Ox 01/20/22 08:00 61 18 01/20/22 07:25 98.7 F 61 157/70 95 01/20/22 01:59 98.5 F 64 18 137/66 96 01/19/22 20:00 98.0 F 65 16 146/63 97 01/19/22 14:00 97.9 F 62 20 112/52 96 Intake and Output 01/19/22 01/20/22 01/20/22 22:59 06:59 14:59 Intake Total 1500 590 Output Total 1200 400 Balance 300 190 Intake: Intake, IV Titration 240 Amount Lactated Ringers 1,000 ml 240 @ 20 mls/hr IV .Q24H ANNA Rx#:[id number] Oral 1500 350 Output: Urine 1200 400 Other: # Voids 6 # Bowel Movements 0 Gen. patient is awake alert oriented 3 Cardio normal S1/S2 Respiratory no wheezing or rhonchi appreciated Dressing applied on the right hip clean dry/intact Extremity no pitting edema noted Psych patient is good spirits Results CBC & Chem 7: 01/20/22 04:28 Labs: Abnormal Lab Results - Last 24 Hours (Table) 01/20/22 Range/Units 04:28 RBC 3.69 L (4.40-5.60) X 10*6/uL Hgb 11.2 L (13.0-17.0) g/dL Hct 34.3 L (39.6-50.0) % Assessment and Plan Assessment: Assessment: #1 right hip avascular necrosis status post right total hip arthroplasty performed 01/18/22 #2 hypothyroidism #3 history of endarterectomy as per patient Plan: -Patient admitted to orthopedic service -Internal medicine consulted for medical management -Patient's home medications have been resumed -CBC reviewed stable platelet count and leukocytosis improved -PT/OT -Pending placement
--- NOTE | 2022-01-20 11:32 | P.PN ---
Subjective Progress Note Date: 01/20/22 Principal diagnosis: Status post right total hip arthroplasty, lateral approach Patient was evaluated today at bedside, his is present at bedside. Patient was up and ambulating with therapy today with the use of walker. His pain is currently controlled. Patient currently denies headaches, lightheadedness, chest pain or shortness of breath. Objective - Vital Signs Vital signs: Vital Signs Temp 98.7 F 01/20/22 07:25 Pulse 61 01/20/22 08:00 Resp 18 01/20/22 08:00 BP 157/70 01/20/22 07:25 Pulse Ox 95 01/20/22 07:25 FiO2 Intake & Output 01/19/22 01/20/22 01/20/22 18:59 06:59 18:59 Intake Total 1740 590 Output Total 1625 400 Balance 115 190 Intake: Intake, IV Titration 240 Amount Lactated Ringers 1,000 ml 240 @ 20 mls/hr IV .Q24H ANNA Rx#:[id number] Oral 1740 350 Output: Urine 1625 400 Other: # Voids 6 # Bowel Movements 0 - Exam Right lower extremity: Incision is clean, dry, and intact. The exofin fusion tape is in good condition. There is minimal soft tissue swelling and ecchymosis surrounding the medial and lateral aspects of the incision. Calf is soft, no tenderness with palpation. Plantar flexion, dorsiflexion, EHL, FHL are intact. Sensory exam to light touch throughout the extremity is intact, dorsal pedis pulses 2+. - Labs CBC & Chem 7: 01/20/22 04:28 Labs: Abnormal Lab Results - Last 24 Hours (Table) 01/20/22 Range/Units 04:28 RBC 3.69 L (4.40-5.60) X 10*6/uL Hgb 11.2 L (13.0-17.0) g/dL Hct 34.3 L (39.6-50.0) % Assessment and Plan Assessment: Postoperative day #2 status post right total hip arthroplasty, lateral approach Plan: Pain control, plan for discharge home on [place] 7.5 mg/325 mg DVT prophylaxis, Plavix 75 mg daily has been resumed Wound care instructions were discussed today, this to include ice, elevating, showering instructions Weight-bear as tolerated, recommendations walker when ambulating Home health care, this including therapy and nursing of discharge Medical recommendations Discharge planning: Patient stable for discharge home today Time with Patient: Less than 30
--- NOTE | 2022-01-20 11:38 | P.DS ---
Providers Date of admission: 01/18/2022 Expected date of discharge: 01/20/22 Attending physician: Yoan Escalante Consults: 01/18/22 15:59 Consult Physician Routine Consulting Provider: rIis Nguyen Consult Reason/Comments: Medical Management s/p right total hip arthroplasty Do you want consulting provider notified?: Yes Primary care physician: Giovanna Harris Hospital Course: Date of admission: 01/18/2022 Date of discharge: 01/21/2020 Admission diagnosis: Status post right total hip arthroplasty, lateral approach Discharge diagnosis: Same Attending physician: Dr. Escalante Surgical procedures: Right total hip arthroplasty, lateral approach Brief history: Patient is a 76-year-old male with a history of avascular necrosis involving the right hip. At this point patient has failed conservative treatment measures and has opted to proceed with a elective right total hip arthroplasty. Hospital course: Details of patient's surgery can be found in operative report. Patient tolerated the procedure well and was subsequently transported to orthopedic floor. Patient's orthopeidc and medical care was provided daily. Patient had daily laboratory tests performed for evaluation of overall blood counts. Patient had daily physical therapy to include strengthening range of motion as well as education with walker ambulation. Patient was treated with Plavix for their postoperative DVT prophylaxis during their inpatient stay. Patient was noted to have a relatively uneventful postoperative course. Patient reported satisfactory pain control with oral pain medications by postoperative day 0. Patient showed satisfactory progress with physical therapy. Patient moved steadily through the program and had no difficulty meeting the goals by postoperative day 2. Given patient's otherwise satisfactory course and having met physical therapy goals, plan is to discharge patient [home] on postoperative day 2. Discharge condition/disposition: Patient will be discharged [home] in stable condition. Discharge medications: Instructions are given on resumption of patient's normal daily medications per primary care recommendation, in addition patient will be prescribed [place] 7.5 mg/325 mg, Colace 100 mg, MiraLAX 17 g. Discharge instructions: 1. Wound care and infection precautions, [keep incision dry and covered while showering], no lotions, creams, moisturizers. No soaking, tubs, pools, hottubs. Do not scrub over the incision. 2. Weight-bear [as tolerated] with walker / cane until follow-up. 3. Ice and elevate when necessary. Do not exceed 20 minutes per hour with ice pack. 4. Utilize compression sleeve until seen at first follow up appointment. 5. Visiting nursing care. 6. Home physical therapy. 7. Pain meds and anticoagulants per prescription. 8. Pain medication has potential to cause constipation. Increase oral fluid and fiber intake. Contact primary care provider if you have not had a bowel movement within 48 hours after discharge 9. No anti-inflammatory medication until discussed at first post operative visit, this including Motrin, Aleve, Mobic, Diclofenac. 10. Follow up in office at 2 weeks postop with Bairon Plata PA-C/Yoel Sheehan 11. Follow up with your primary care doctor 7-10 days after discharge. 12. Contact [facility] with any questions, . Procedures: Right total hip arthroplasty, lateral approach Plan - Discharge Summary Discharge Rx Participant: No New Discharge Prescriptions: New Docusate [Colace] 100 mg PO DAILY #30 capsule polyethylene glycoL 3350 [Miralax] 17 gm PO DAILY PRN #21 packet PRN Reason: Constipation HYDROcodone/APAP 7.5-325MG [[place] 7.5] 1 each PO Q6HR PRN #28 tab PRN Reason: Pain No Action Multivitamins, Thera [Multivitamin (formulary)] 1 tab PO DAILY Glucosam/Jimy-Msm1/C/Ezequiel/Bosw [Glucosamine-Chondroitin Tablet] 2 tab PO DAILY [place]-3 Fatty Acids [[place]-3] 1,000 mg PO DAILY Levothyroxine Sodium [Synthroid] 50 mcg PO QAM Calcium Carbonate [Calcium] 1,200 mg PO DAILY Aspirin EC [Ecotrin Low Dose] 81 mg PO DAILY #30 tablet. Clopidogrel [Plavix] 75 mg PO DAILY #30 tab Losartan Potassium [Cozaar] 25 mg PO HS Lidocaine 5% Patch [Lidoderm 5% Patch] 1 patch TOPICAL DAILY PRN PRN Reason: Pain Acetaminophen [Tylenol Arthritis] 650 mg PO Q6H PRN PRN Reason: Pain Discharge Medication List Calcium Carbonate [Calcium] 1,200 mg PO DAILY 01/13/20 [History] Glucosam/Jimy-Msm1/C/Ezequiel/Bosw [Glucosamine-Chondroitin Tablet] 2 tab PO DAILY 01/13/20 [History] Levothyroxine Sodium [Synthroid] 50 mcg PO QAM 01/13/20 [History] Multivitamins, Thera [Multivitamin (formulary)] 1 tab PO DAILY 01/13/20 [History] [place]-3 Fatty Acids [[place]-3] 1,000 mg PO DAILY 01/13/20 [History] Aspirin EC [Ecotrin Low Dose] 81 mg PO DAILY #30 tablet. 01/15/20 [Rx] Clopidogrel [Plavix] 75 mg PO DAILY #30 tab 01/15/20 [Rx] Losartan Potassium [Cozaar] 25 mg PO HS 01/22/20 [History] Lidocaine 5% Patch [Lidoderm 5% Patch] 1 patch TOPICAL DAILY PRN 08/30/21 [History] Acetaminophen [Tylenol Arthritis] 650 mg PO Q6H PRN 01/14/22 [History] Docusate [Colace] 100 mg PO DAILY #30 capsule 01/20/22 [Rx] HYDROcodone/APAP 7.5-325MG [[place] 7.5] 1 each PO Q6HR PRN #28 tab 01/20/22 [Rx] polyethylene glycoL 3350 [Miralax] 17 gm PO DAILY PRN #21 packet 01/20/22 [Rx] Follow up Appointment(s)/Referral(s): Yoel Smith PAC [PHYSICIAN INTERNAL MEDICINE NURSE PRACTITIONER] - 02/03/22 8:50 am Giovanna Harris PAC [Primary Care Provider] - 1 Week Patient Instructions/Handouts: Total Hip Replacement (DC) Activity/Diet/Wound Care/Special Instructions: Orthopedic Discharge Instructions: 1. Wound care and infection precautions, [keep incision dry and covered while showering], no lotions, creams, moisturizers. No soaking, pools, hot tubs. Do not scrub over incision. 2. Weight-bear [as tolerated] with walker / cane until follow-up. 3. Ice and elevate when necessary. Do not exceed 20 minutes per hour with ice pack. 4. Utilize compression sleeve until seen at first follow up appointment. 5. Pain meds and anticoagulants per prescription. 6. Pain medication has potential to cause constipation. Increase oral fluid and fiber intake. Contact primary care provider if you have not had a bowel movement within 48 hours after discharge. 7. No anti-inflammatory medication until discussed at first post operative visit, this including Motrin, Aleve, Mobic, Diclofenac. 8. Follow up in office at 2 weeks postop with Bairon Plata PA-C/Yoel Smith PA-C 9. Follow up with your primary care doctor 7-10 days after discharge. 10. Contact [facility] with any questions, . Discharge Disposition: HOME WITH HOME HEALTH SERVICES
== END 2022-01-20 13:45 | disposition home health service (06) ==
LOC: OR 12:31 → 4SSUR 17:15 → OR 01-19 12:29 → 4SSUR 01-20 13:45
PROVIDERS: ADMIT Orthopaedic Surgery; ATTEND Orthopaedic Surgery
DX: M16.11 Unilateral primary osteoarthritis, right hip (principal); K21.9 Gastro-esophageal reflux disease without esophagitis; I10 Essential (primary) hypertension; E03.9 Hypothyroidism, unspecified; H81.09 Meniere's disease, unspecified ear; R73.03 Prediabetes; D72.829 Elevated white blood cell count, unspecified; Z85.46 Personal history of malignant neoplasm of prostate; Z86.19 Personal history of other infectious and parasitic diseases; I65.29 Occlusion and stenosis of unspecified carotid artery; Z83.3 Family history of diabetes mellitus; Z98.890 Other specified postprocedural states; Z82.3 Family history of stroke; Z82.49 Family history of ischemic heart disease and other diseases of the circulatory system; Z80.9 Family history of malignant neoplasm, unspecified; I48.91 Unspecified atrial fibrillation; Z86.73 Personal history of transient ischemic attack (TIA), and cerebral infarction without residual deficits; H91.90 Unspecified hearing loss, unspecified ear; Z92.21 Personal history of antineoplastic chemotherapy; Z92.3 Personal history of irradiation; Z79.02 Long term (current) use of antithrombotics/antiplatelets; Z79.82 Long term (current) use of aspirin; Z79.890 Hormone replacement therapy; Z79.899 Other long term (current) drug therapy; Z79.01 Long term (current) use of anticoagulants
CPT/HCPCS: 94760; 97116; 97161; 97530; 97535; 97166; 64999; 76942; 86900; 86901; 88305; 85025 ×2; 86850; 88311; 73501; G0378 ×2; C1776; J2250; J0330; J1100; J2710; J0690 ×2; J2405; J3010; J2795; J2704; J1170 ×2; J2001